=== PATIENT | male | born 1995 | race African-American/Black ===

== ENCOUNTER 2019-03-01 16:58 | Emergency (ER) | payer OTHER ==
[~2019-03-01] VITALS: Ht 167.6 cm; Wt 68.0 kg
[~2019-03-01 16:58] MED LIST: AMOXICILLIN500 MG PO; NORCO 5-325 TA1 EACH PO; PRILOSEC20 MG PO; TRAMADOL HCL50 MG PO
[2019-03-01] MEDS ORDERED: MULTI VITAMIN1 EACH PO (17:13)
[2019-03-01] MEDS ORDERED: INDOMETHACIN50 MG PO (18:42)
--- NOTE | 2019-03-02 07:26 | EKG ---
[facility] [address] [place], [place] [address] Signed Normal sinus rhythm with sinus arrhythmia Normal ECG No previous ECGs available Confirmed by ESHA ROSADO MD ([id number]) on 03/02/2019 7:26:38 AM Electronically Signed By: ESHA ROSADO MD 03/02/19 0726 PATIENT NAME: ANTOINE LEA ARANSAS PASS Electrocardiogram DATE OF : [birth year] PHYSICIAN: ESHA ROSADO MD REPORT #: [id number] REPORT IS CONFIDENTIAL AND NOT TO BE RELEASED WITHOUT AUTHORIZATION
== END 2019-03-01 19:21 | disposition home or self-care (01) ==
LOC: ED 16:58
DX: R07.81 Pleurodynia (principal); R09.1 Pleurisy; Z91.041 Radiographic dye allergy status
CPT/HCPCS: 71046; 80053; 83690; 84484; 85025; 85379; 85651; 86140; 93005; 93010; 99285-25

== ENCOUNTER 2019-11-01 17:46 | Emergency (ER) | payer OTHER ==
[~2019-11-01] VITALS: Ht 167.6 cm; Wt 74.8 kg
[~2019-11-01 17:46] MED LIST changes: +INDOMETHACIN50 MG PO; +MULTI VITAMIN1 EACH PO
[2019-11-01] MEDS ORDERED: NEOMYCIN-POLYMY10 M1 OTIC (19:09)
== END 2019-11-01 19:20 | disposition home or self-care (01) ==
LOC: ED 17:46
DX: H60.92 Unspecified otitis externa, left ear (principal); Z91.02 Food additives allergy status; Z20.828 Contact with and (suspected) exposure to other viral communicable diseases
CPT/HCPCS: 99283; C9803; U0002

== ENCOUNTER 2020-10-23 20:14 | Observation (INO) | payer BC, OTHER ==
[~2020-10-23] VITALS: Ht 167.6 cm; Wt 73.5 kg
[~2020-10-23 20:14] MED LIST changes: +NEOMYCIN-POLYMY10 M1 OTIC
[2020-10-23] MEDS ORDERED: TRAZODONE HCL50 MG PO (20:26)
[2020-10-23] MEDS ORDERED: HYDROCODON-ACE1 EA10 PO (20:26)
[2020-10-23] MEDS ORDERED: OMEPRAZOLE20 MG PO (20:26)
--- NOTE | 2020-10-23 23:58 | NUR ---
ADMIT PT 2315 FOR NEW ONSET A FIB. PT IS ALERT ORIENTED, COOPERATIVE. REMIANS IN AFIB WITH OCC PVCS. PT IS CAN FEEL WHEN HE HAS PVC. 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 EXPLAINED HEART RATE CONTROL IS FIRST PRIOITY. RATE IS 90-110. AMB TO BR WITHOUT PROBLEM TO VOID. C/O BEING HUNGY, GIVEN PUDDING AND CRACKERS WHILE WAITING FOR SANDWICH BOX.
--- NOTE | 2020-10-24 02:24 | NUR ---
HAS BEEN SLEEPING. HR 60'S OCC DIPPING TO 50'S. BP88/62. DR CABEZAS CALLED AND WILL HOLD 0200 SCHEDULED DOSE OF CARDIZEM. PT AWARE.
--- NOTE | 2020-10-24 04:09 | NUR ---
AWAKENS EASILY. BP 91/58, PT STATES BP SYST USUALLY 130'S. REINFORCED CALLING BEFORE GETTING OUT OF BED DUE TO LOWER THAN USUAL BP. PT EXPRESSED UNDERSTANDING. REMAINS IN AFIB.
--- NOTE | 2020-10-24 05:10 | NUR ---
DR CABEZAS CALLED CCU TO CHECK ON PT. UPDATE GIVEN AND ORDER FOR 1L LR OVER 2 HOURS GIVEN. PT REMAINS IN AFIB.
--- NOTE | 2020-10-24 06:47 | NUR ---
CONT TO SLEEP SOUNDLY.
--- NOTE | 2020-10-24 07:35 | NUR ---
REPORT RECEIVED FROM NIGHTSHIFT RN, WILL CONTINUE PLAN OF CARE.
--- NOTE | 2020-10-24 08:14 | NUR ---
THIS RN IN TO ASSESS PT AND ADMINISTER ORDERED MEDICATIONS. PT LAYING IN BED ALERT AND ORIENTED X 3, PARTNER AT BEDSIDE. PT REPORTS NO CHEST PAIN OR LIGHTHEADEDNESS AT THIS TIME BUT DOES REPORT LOWER ABD PAIN. PT STATES IT'S LIKELY HE JUST HAS A FULL BLADDER AND DENIED PRN PAIN MEDICATION WHEN ASKED. PT STATED HE COULD FEEL SOME PALPATIONS AT TIMES. MEDICATION ADMINISTERED AT THIS TIME (SEE MAR). PT THEN UP TO BATHROOM TO VOID. PT REPORTED NO LIGHTHEADEDNESS, CHEST PAIN, OR SOB WHEN WALKING TO AND FROM BATHROOM. PT NOW BACK IN BED, WARM BLANKETS AND WATER PROVIDED. PT REPORTS NO FURTHER NEEDS WHEN ASKED AT THIS TIME, WILL CONTINUE PLAN OF CARE. CALL LIGHT IN REACH, BED IN LOWEST POSITION.
--- NOTE | 2020-10-24 09:31 | NUR ---
MED REC COMPLETE
--- NOTE | 2020-10-24 09:38 | NUR ---
IMAGING IN ROOM AT THIS TIME TO DO SCHEDULED ECHO.
--- NOTE | 2020-10-24 10:35 | NUR ---
THIS RN IN TO ADMINISTER ORDERED MEDICATION. PT LAYING IN BED AWAKE AND ALERT WITH PARTNER AT BEDSIDE. MEDICATION ADMINISTERED (SEE MAR). PT REPORTS NO FURTHER NEEDS WHEN ASKED AT THIS TIME. CALL LIGHT IN REACH, BED IN LOWEST POSITION, WILL CONTINUE PLAN OF CARE.
--- NOTE | 2020-10-24 11:42 | NUR ---
THIS RN IN TO HELP PT UP TO WALK DOWN THE [place]. PT LAYING IN BED AWAKE AND ALERT. PT ABLE TO GET UP WITHOUT ASSISTANCE. PT WALKED TWO LAPS BACK AND FORTH DOWN THE CCU GOOD[place]. PT DENIED SHORTNESS OF BREATH, PALPITATIONS, OR ANY TYPE OF PAIN WHILE WALKING. PT STATED HE FELT SLIGHTLY LIGHTHEADED BUT STATED HE HAS FELT THAT WAY SINCE HIS A-FIB STARTED. PT ABLE TO WALK BACK INTO ROOM AND INTO BATHROOM TO VOID AND THEN GET BACK INTO BED WITHOUT ASSISTANCE. PT NOW LAYING IN BED AT THIS TIME AND REPORTS NO FURTHER NEEDS. PARTNER AT BEDSIDE, CALL LIGHT IN REACH, BED IN LOWEST POSITION, WILL CONTINUE PLAN OF CARE.
--- NOTE | 2020-10-24 11:56 | NUR ---
THIS RN IN TO ASSESS PT. PT LAYING IN BED AWAKE AND ALERT WITH PARTNER AT BEDSIDE. ASSESSMENT COMPLETED AT THIS TIME AND VITALS TAKEN. PT REPORTS NO FURTHER NEEDS WHEN ASKED AT THIS TIME. CALL LIGHT IN REACH, BED IN LOWEST POSITION, WILL CONTINUE PLAN OF CARE.
--- NOTE | 2020-10-24 13:16 | NUR ---
pt has episode of hypotension, BP at 71/44,in room to recheck, second BP is 79/53. Pt states he is feeling nauseated after eating his lunch, requesting emesis bag. Dr. Sumner notified, states pt has prn Zofran ordered. Zofran 4mg IV given, pt states he is feeling better, only complaint was transient nausea, denies chest pain, shortness of breath or any other symptoms. BP 96/54 after Zofran given, pt states nausea has passed at this time. Dr. Sumner also ordered IV fluid bolus if needed, states to hold it as pt's BP improved after nausea passed. Pt is currently resting with at his side, is alert, appropriate and conversant with this RN. Skin is warm and dry. No additional complaints at this time.
--- NOTE | 2020-10-24 14:20 | NUR ---
PT LAYING IN BED RESTING AT THIS TIME. RESPIRATIONS NOTED AND ARE EVEN AND UNLABORED. PT IN NO APPARENT DISTRESS AND WAS LEFT UNDISTURBED. PARTNER IN ROOM WITH PT, WILL CONTINUE PLAN OF CARE.
--- NOTE | 2020-10-24 14:54 | NUR ---
IMAGING IN PT'S ROOM TO DO ANOTHER ECHO AT THIS TIME.
--- NOTE | 2020-10-24 15:26 | NUR ---
THIS RN IN TO CHECK ON PT, PT FINISHED WITH ECHO. PT LAYING IN BED AWAKE AND ALERT WITH PARTNER AT BEDSIDE, DINNER ORDERED FOR PT AT THIS TIME. PT PROVIDED WITH JUICE PER HIS REQUEST. PT REPORTS NO FURTHER NEEDS AT THIS TIME, WILL CONTINUE PLAN OF CARE. CALL LIGHT IN REACH, BED IN LOWEST POSITION.
--- NOTE | 2020-10-24 16:07 | NUR ---
THIS RN IN TO ASSESS PT AND TAKE VITALS. PT LAYING IN BED AWAKE AND ALERT WATCHING TV WITH PARTNER AT BEDSIDE. PT REPORTS NO PAIN OR SHORTNESS OF BREATH AT THIS TIME. PT STATES HES NOT LIGHTHEADED AT THIS TIME BUT FEELS IT WHEN SITTING UP OR LAYING DOWN IN BED. PT STATES HE DOES FEEL A LITTLE "HAZY" WHICH HE HAS FELT SINCE HIS A-FIB STARTED. PT ALSO STATES HE FEELS PALPITATIONS WHEN HE HAS PVC'S. PT ASSESSED AT THIS TIME HEART TONES STILL IRREGULAR IN RYTHM. PT REPORTS NO NEEDS AT THIS TIME WHEN ASKED. CALL LIGHT IN REACH, BED IN LOWEST POSITION, WILL CONTINUE PLAN OF CARE.
--- NOTE | 2020-10-24 17:15 | NUR ---
RESPONDED TO PT'S PRTNER INFORMING ME PT NEEDED TO USE THE BATHROOM. PT PUT ON DETACHED MONITOR AND WAS ABLE TO SIT UP AND WALK TO BATHROOM WITHOUT ASSISTANCE, HR NOTED TO INCREASE FROM THE 90'S TO THE 120-130'S WHILE PT WALKED TO BATHROOM. ONCE PT SAT ON TOILET TO HAVE A BM HR DECREASED BACK TO THE 90'S. HR INCREASED TO 120'S WHEN PT GOT UP AND WALKED BACK TO THE BED AND QUICKLY DECREASED BACK TO A HR IN THE 90'S WHEN PT GOT BACK INTO BED. PT STATED HE FELT PALPITATIONS DURING THIS TIME AND DID FEEL LIGHTHEADED WHEN HE GOT UP TO WALK TO THE BATHROOM. PT NOW LAYING IN BED AWAKE AND ALERT HR IN THE 90'S. PT REPORTS NO FURTHER NEEDS AT THIS TIME, WILL CONTINUE PLAN OF CARE. CALL LIGHT IN REACH, PARTNER IN ROOM AT BEDSIDE, BED IN LOWEST POSITION.
--- NOTE | 2020-10-24 18:07 | EKG ---
[facility] [address] [place] [address] Signed Atrial fibrillation with rapid ventricular response Nonspecific T wave abnormality Abnormal ECG When compared with ECG of 01-MAR-2019 17:11, Atrial fibrillation has replaced Sinus rhythm Confirmed by COLLINS CABEZAS MD ([id number]) on 10/24/2020 6:07:35 PM Electronically Signed By: COLLINS CABEZAS MD 10/24/20 1807 PATIENT NAME: ANTOINE LEA CATINA CRESTLINE Electrocardiogram DATE OF : [birth year] PHYSICIAN: COLLINS CABEZAS MD REPORT #: [id number] REPORT IS CONFIDENTIAL AND NOT TO BE RELEASED WITHOUT AUTHORIZATION
--- NOTE | 2020-10-24 18:45 | NUR ---
THIS RN IN TO CHECK ON PT. PT LAYING DOWN IN BED AT THIS TIME, PARTNER AT BEDSIDE PROVIDIING PT WITH A SIP OF WATER. PT ASKED ON HOW HE HAS BEEN FEELING, PT STATES THAT HE HAD TO LAY DOWN SHORTLY AFTER DINNER WAS BROUGHT DUE TO FEELING PALPITATIONS, WARM, AND LIGHTHEADED AND SLIGHTLY SHORT OF BREATH WHILE SITTING UP. PT STATES HE TRIED TO LAY BACK ON THE BED IN A FOWLERS/SEMI FOWLERS HE WAS ORIGINALLY SITTING STRAIGHT UP WITHOUT SUPPORT ON HIS BACK BUT STILL FELT SIMILAR. PT CURRENTLY LAYING DOWN IN THE BED ON HIS BACK, HR IN THE 90'S AT THIS TIME. PT IS ALERT AND AWAKE, PARTNER STILL AT BEDSIDE, PT PROVIDED WITH SODA PER HIS REQUEST. WILL CONTINUE PLAN OF CARE, CALL LIGHT IN REACH.
--- NOTE | 2020-10-24 19:59 | NUR ---
RESTING IN BED, HR 90'S. WHEN PT SAT UP FOR LUNG AUSCULTATION HR TO 123. EVEN AT REST PT DOES NOT FEEL WELL, FEELS TIRED. CAN ALSO FEEL WHEN HAS PVCS.
--- NOTE | 2020-10-24 20:15 | NUR ---
DR CABEZAS CALLED CCU FOR UPDATE. MANUAL BP 88/48. ORDERS FOR IVF RECIEVED. LR BOLUS OVER 1 HOUR STARTED.
--- NOTE | 2020-10-24 20:35 | NUR ---
PT C/O CHEST DISCOMFOR 09/12, PRESSUR WITH SOME SHARP ELEMEMT. DR CABEZAS CALLED. ORDERS RECIEVED.
--- NOTE | 2020-10-24 21:03 | NUR ---
IN TO GIVE GI COCKTAIL AND PROTONIX, PT TOLERATED WELL. PT UP TO BATHROOM, VOIDED 425 YELLOW URINE AND RETURNED TO BED. PT REPORTS FEELING MILDLY LIGHTHEADED WITH ACTIVITY, BUT STATES IT IS BETTER THAN EARLIER. HR UP TO 122 WITH AMBULATION AND BACK INTO 90'S AT REST. PT DENIES FURTHER REQUESTS, CALL LIGHT AND BELONGINGS WITHIN REACH.
--- NOTE | 2020-10-24 21:24 | NUR ---
RESTING IN BED. BOLUS COMPLETE. BP IMPROVED. CONT CHEST DISCOMFORT UNCHANGED
--- NOTE | 2020-10-24 22:15 | NUR ---
AMB TO BR TO VOID. STATES IS STILL A LITTLE LIGHT HEADED BUT OVERAL BETTER. CHEST DISCOMFORT IS ALSO A LITTLE BETTER. TROPONIN CAME BACK NEG.
--- NOTE | 2020-10-24 23:00 | NUR ---
PT CONT TO HAVE CHEST DISCOMFORT ALTHOUGH A LITTLE BETTER. NOTED ST ELEVATION ON MONITOR IN V LEAD. DR CABEZAS HAD CALLED TO CHECK ON PT AND WAS UPDATED. DR CABEZAS THEN IN DEPT AND EKG REVIEWED.
--- NOTE | 2020-10-24 23:23 | NUR ---
ASSESSMENT DONE. METOPROLOL 12.5MG GIVEN PO. BP 134/70 AFTER THIS L OF LR, PT STATES THIS IS HIS NORMAL.
--- NOTE | 2020-10-25 00:30 | NUR ---
AWAKENED PT TO DRAW LAB. NO C/O.
--- NOTE | 2020-10-25 02:00 | NUR ---
SLEEPING. LAYING ON L SIDE WITH R ARM UP,WHICH HAS BP CUFF IN PLACE. HR 70-80, REMAINS AFIB.
--- NOTE | 2020-10-25 04:16 | NUR ---
AWAKENED FOR VS AND ASSESSMENT. STATES HAS BEEN SLEEPING. AMB TO BATHROOM, HR TO 109. STATES DOESNT FEEL QUITE BAD WHEN UP BEFORE.
--- NOTE | 2020-10-25 06:55 | NUR ---
SLEEPING, NO OTHER CHANGES.
--- NOTE | 2020-10-25 08:14 | NUR ---
IN PATIENT'S ROOM FOR ASSESSMENT AND VITALS. PT EAGER TO HAVE SOME PROGRESS IN SOMEWAY TODAY. PATIENT UP TO BATHROOM TO VOID. PT STILL ENDORSES SOME DIZZYNESS WHEN AMBULATING, WHICH IS ABOUT THE SAME BEFORE. PATIENT REMAINS IN AFIB, 80-90s. LUNG SOUNDS ARE CLEAR. PT STATES HE IS HAVING LOWER ABDOMINAL PAIN THIS MORNING, COMPARED TO UPPER QUAD ABD PAIN YESTERDAY. PAIN DID NOT IMPROVE AFTER VOIDING. DISCUSSED PLAN OF CARE WIHT PATIENT. CONTINUE TO MONITOR.
--- NOTE | 2020-10-25 09:58 | NUR ---
PATIENT'S IN ROOM WITH PATIENT. PATIENT GIVEN AM MEDS AND TOLERATED WELL. PT ABLE TO TAKE THE LOPRESSOR THIS AM WITH A BP OF 116/72. IVF CONTINUE AT 75 ML/HR. PT NOT VERY HUNGRY THIS AM AND HASN'T EATEN ANY OF HIS FRUIT YET. PT DENIES FURTHER NEEDS.
--- NOTE | 2020-10-25 10:15 | NUR ---
CASE MANAGEMENT ASSESSMENT COMPLETE. PER PRIMARY RN PAO PATIENT SHE DOES NOT FEEL THAT PATIENT REQUIRES ANY DISCHARGE PLANNING OR ASSISTANCE AT THIS TIME. ADVISED PAO RN TO CONTACT CASE MANAGEMENT IF NEEDED.
--- NOTE | 2020-10-25 10:50 | NUR ---
PATIENT AMBULATED IN THE [place] PER REQUEST OF DR. CABEZAS. PATIENT'S HR UP TO 110-121 AT THIS HIGHEST DURING AMBULATION. PATIENT REPORTS THAT HE STILL FEELS DIZZY, WITH HIS HEAD FEELING LIKE, "MY HEAD IS STUCK IN A CLOUD." PATIENT ABLE TO DO TWO FULL LAPS IN CCU HALLWAY. PATIENT ALSO VOIDS INTO URINAL X2 FOR 400 ML EACH TIME AND URINE SEEMS TO BE CLEARING AND BECOMING MORE AND MORE DILUTE. PT'S REMAINS IN ROOM.
--- NOTE | 2020-10-25 11:21 | NUR ---
DR. CABEZAS IN TO SEE PATIENT AT THIS TIME. PLAN OF CARE AND POTENTIAL TRANSFER BEING DISCUSSED. DR. CABEZAS CONSULTING WITH CARDIOLOGY TO SEE WHAT IS RECOMMENDED FOR THIS PATIENT'S CONDITION AND PLAN MOVING FORWARD. PT REMAINS IN AFIB.
--- NOTE | 2020-10-25 11:26 | EKG ---
[facility] [address] [place] [address] Signed Atrial fibrillation Nonspecific ST and T wave abnormality Abnormal ECG When compared with ECG of 23-OCT-2020 20:16, Non-specific change in ST segment in Inferior leads Reconfirmed by COLLINS CABEZAS MD ([id number]) on 10/25/2020 11:26:10 AM Electronically Signed By: COLLINS CABEZAS MD 10/25/20 1125 Electronically Signed By: COLLINS CABEZAS MD 10/25/20 1126 PATIENT NAME: ANTOINE LEA CASHIERS Electrocardiogram DATE OF : [birth year] PHYSICIAN: COLLINS CABEZAS MD REPORT #: [id number] REPORT IS CONFIDENTIAL AND NOT TO BE RELEASED WITHOUT AUTHORIZATION
--- NOTE | 2020-10-25 13:58 | NUR ---
PATIENT'S LEAVES AT THIS TIME FOR PATIENT TO HAVE OTHER VISITORS TO COME AND VISIT. PT NOW SITTING UP EATING HIS LUNCH. PT HAS BEEN ONLY EATING MINIMALLY. IVF TO CONTINUE AT 75 ML/HR DUE TO PATIENT NOT TAKING A LOT ORALLY YET.
--- NOTE | 2020-10-25 14:37 | NUR ---
PATIENT'S HR HAS BEEN SLIGHTLY TRENDING UP. DR. CABEZAS AWARE. PT'S VISITORS HAVE LEFT AND PT'S NOW IN ROOM. WAITING ON [facility] TRANSFER CENTER TO ACCEPT PATIENT.
--- NOTE | 2020-10-25 15:07 | NUR ---
PATIENT PROVIDED WITH WARM BATH WIPES, CLEAN GOWN, AND A RAZOR. PT'S IS HELPING PATIENT GET CLEANED UP AT THIS TIME AND DENIES WANTING THIS RN TO HELP. PATIENT'S HR REMAINS 100-110s. PT STATES OVERALL HE FEELS ABOUT THE SAME, AND GETS EASILY FATIGUED WITH REALLY ANY ACTIVITY.
--- NOTE | 2020-10-25 16:30 | NUR ---
AMBULATED TO BR, HR INCREASED TO 140 BPM WITH EXERTION. C/O FEELING LIGHT HEADED/DIZZY. BACK TO BED W/O INCIDENT.
--- NOTE | 2020-10-25 17:22 | NUR ---
PATIENT REPORTS THAT HE IS FEELING MORE AND MORE DIZZY AND "HEAD IN THE CLOUDS LIKE." DR. CABEZAS CALLED AND UPDATED. PT'S HR HAS BEEN MORE CONSISTENTLY STAYING IN THE 110-130s, AND EVEN REACHED 140 WITH AMBULATION TO BATHROOM TO HAVE A BM. ORDER TO BE REC'D FOR MORE MEDICATION FOR HR CONTROL. PT UPDATED ON PLAN. PENDING CALL BACK FROM [facility].
--- NOTE | 2020-10-25 19:35 | NUR ---
RESTING IN BED, IN ROOM. PT IS ALERT AND LOOKING FORWARD TO CARDIOVERSION.
--- NOTE | 2020-10-25 20:10 | NUR ---
PT PREPARED FOR CARDIOVERSION 1949, ASA SCORE PER DR GAMEZ OF 1. TIME OUT DONE AT 1952. DR GAMEZ AND DR CABEZAS AT BEDSIDE. AT 1956 AFTER TOTAL OF 120MG PROPOFOL THAT WAS GIVEN IN 40MG INCREMENTS PT SEDATED AND WAS CARDIOVERTED WITH 200 JOULES, CONVERTED TO NSR RATE OF 90, BP 95/60. PT HAS [address] RT AT BEDSIDE SUPPORTING AIRWAY. PT STARTING TO AROUSE 2004 AND TALKING AT 2009.
--- NOTE | 2020-10-25 21:00 | NUR ---
PT FEELING MUCH BETTER STATES HAS AN APPETITE NOW. AMB TO BR AND DAVID WELL.
--- NOTE | 2020-10-25 23:00 | NUR ---
SLEEPING. CONT IN SR.
--- NOTE | 2020-10-26 00:35 | NUR ---
AWAKENS EASILY. ASSESSMENT DONE. NO C/O.
--- NOTE | 2020-10-26 02:20 | NUR ---
CONT TO SLEEP. REMAINS NSR.
--- NOTE | 2020-10-26 04:00 | NUR ---
CONT TO SLEEP. REMAINS SR. WILL HOLD ASSESSMENT FOR NOW.
--- NOTE | 2020-10-26 05:30 | NUR ---
AWADEVAUGHN EASILY, NO C/O. REMAINS IN SR. DECLINES NEED TO VIDD.
--- NOTE | 2020-10-26 07:45 | NUR ---
PATIENT SLEEPING AT THIS TIME AND WILL BE ALLOWED TO CONTINUE RESTING FOR A WHIILE LONGER. HR IN THE 60s, SINUS. PT'S IN ROOM NEXT TO HIM ASLEEP. RR EVEN AND UNLABORED. PATIENT WAS CARDIOVERTED LAST EVENING TO SINUS RHYTHM SUCCESSFULLY AFTER ONE ATTEMPT.
--- NOTE | 2020-10-26 08:57 | NUR ---
DR. CABEZAS IN TO SEE PATIENT. PLAN IS FOR PATIENT TO GO HOME AND FOLLOW UP WITH PCP, AND ALSO OBTAIN A CARDIOLOGY CONSULTATION FROM PCP. PATIENT SITTING UP IN BED EATING, AND STATES THAT ALL OF HIS SYMPTOMS HAVE RESOLVED SINCE THE CARDIOVERSION LAST EVENING. PT WILL BE DISCHARGED ON AN ANTICOAGULANT.
[2020-10-26] MEDS ORDERED: XARELTO10 MG PO (09:06)
[2020-10-26] MEDS ORDERED: XARELTO20 MG PO (09:08)
--- NOTE | 2020-10-27 18:31 | EKG ---
[facility] [address] [place], [place] [address] Signed Normal sinus rhythm Nonspecific ST and T wave abnormality Abnormal ECG When compared with ECG of 24-OCT-2020 22:53, Sinus rhythm has replaced Atrial fibrillation Confirmed by COLLINS CABEZAS MD ([id number]) on 10/27/2020 6:30:59 PM Electronically Signed By: COLLINS CABEZAS MD 10/27/201830 PATIENT NAME: ANTOINE LEA CATINA VILLANOVA Electrocardiogram DATE OF : [birth year] PHYSICIAN: COLLINS CABEZAS MD REPORT #: [id number] REPORT IS CONFIDENTIAL AND NOT TO BE RELEASED WITHOUT AUTHORIZATION
== END 2020-10-26 09:45 | disposition home or self-care (01) ==
LOC: ED 20:14 → CCU 20:15
PROVIDERS: ADMIT Internal Medicine; ATTEND Internal Medicine
DX: I48.0 Paroxysmal atrial fibrillation (principal); Q24.5 Malformation of coronary vessels; Z91.041 Radiographic dye allergy status; Z79.899 Other long term (current) drug therapy; Z20.822 Contact with and (suspected) exposure to COVID-19
CPT/HCPCS: 80053; 83735; 84443; 84484; 85025; 93005; 93010; 93306; 96372; 96375; 96376; 99285-25; C9113; C9803; G0378; J1650; J2405; J7121; U0003

== ENCOUNTER 2021-01-29 11:57 | Inpatient (IN) | payer BC, OTHER ==
[~2021-01-29] VITALS: Ht 167.6 cm; Wt 74.2 kg
[~2021-01-29 11:57] MED LIST changes: +HYDROCODON-ACE1 EA10 PO; -MULTI VITAMIN1 EACH PO; +TRAZODONE HCL50 MG PO; +XARELTO10 MG PO; +XARELTO20 MG PO
--- NOTE | 2021-01-29 18:30 | NUR ---
PT ALERT AND ORIENTED SITTING IN BED, REPORTS PAIN 7-8/10, 0.5MG DILAUDID IV PRN. IV FLUIDS STARTED, ABX STARTED. PT ON CELL PHONE NOW. ADMISSION COMPLETE EXCEPT FOR ASSESSMENT
--- NOTE | 2021-01-29 20:30 | NUR ---
PT CALLED, REQUESTED BATHROOM. ONCE BACK TO BED, IV FLUSHED, AND MAINTANCE FLUIDS. PT THOUGHT HE COULD HAVE A BM, HOWEVER, HE WAS UNABLE. DID VOID SMALL AMOUNT HE SAID.
--- NOTE | 2021-01-29 21:20 | NUR ---
PT ASSESSMENT COMPLETE. PT RATES PAIN 8/10 AFTER ATTEMPTING TO USE THE BATHROOM. PT DESCRIBES CRAMPING ABD PAIN THAT RADIATES TO BACK. PRN ADMINISTERED, SEE EMAR. PT DENIES NAUSEA. DECLINES SOB. BT'S ACTIVE. PT REPORTS FLATUS, UNABLE TO HAVE BM. ABD TENDER TO PALPATION. MILD DISTENSION NOTED. IV FLUSHED. PT REQUESTS NEW IV SITE DUE TO SORENESS IN AC, AND CONVIENENCE. NEW IV PLACED BY THIS TRANSFER PUMPER. PT TOELRATED WELL. GOOD BLOOD RETURN NOTED. ICE WATER REFILLED. PT DENIES FURTHER NEEDS AT THIS TIME. CALL LIGHT IN REACH.
--- NOTE | 2021-01-30 00:05 | NUR ---
c/o abd pain, medicated with dilaudid 1.5mg iv. turns and repositions self in bed
--- NOTE | 2021-01-30 00:05 | NUR ---
REGISTERED NURSE PRACTITIONER TO ROOM TO CHECK ON PT. PT RESTING IN BED AWAKE. STATES HE HAS NOT BEEN ABLE TO FALL ASLEEP YET. DENIES NEED FOR PRN AT THIS TIME. STATES "LOULOU AROUND 2". DENIES NEEDS AT THIS TIME. CALL LIGHT IN REACH.
--- NOTE | 2021-01-30 00:15 | NUR ---
PT RESTING IN BED AWAKE. PT REQUESTS IV SITE BE TAPED ADDITIONALLY, STATES IT CAUGHT ON BLANKET. PT DENIES FURTHER NEEDS AT THIS TIME. CALL LIGHT IN REACH.
--- NOTE | 2021-01-30 02:28 | NUR ---
PT ASSESSMENT COMPLETE. PT REPORTS PAIN 7/10 TO ABD, CONTINUES TO DESCRIBE CRAMPING. PRN DILUADID ADMINISTERED. PT DENIES SOB OR NAUSEA. BT'S ACTIVE, ABD TENDER TO PALPATION, MILD DISTENSION CONTINUES. PT UP TO BATHROOM AND BACK TO BED WITH SBA. PT REPORTS INCREASED PAIN WITH MOVEMENT AND ATTEMPT TO HAVE BM. ICE WATER REFILLED, WARM COMPRESS, PRN SLEEP AID ADMINISTERED PER PT REQUEST. STATES THAT HE HAS BEEN UNABLE TO SLEEP WELL TONIGHT. PT DENIES FURTHER NEEDS AT THIS TIME. PT VERY THANKFUL FOR ALL CARES. CALL LIGHT IN REACH.
--- NOTE | 2021-01-30 05:00 | NUR ---
ENVIRONMENTAL DEPARTMENT MANAGER TO ROOM FOR IV PUMP ALARM. PT WAKES BRIEFLY, FALLS BACK TO SLEEP QUICKLY WHILE ENVIRONMENTAL DEPARTMENT MANAGER AT BEDSIDE. SNORING AUDIBLY. CALL LIGHT IN REACH.
--- NOTE | 2021-01-30 06:43 | NUR ---
PT UP TO BATHROOM AND BACK TO BED. REPORTS INCREASED PAIN, 12/13. PRN ADMINISTERED, SEE EMAR. WARM COMPRESS PROVIDED PER PT REQUEST. ICE WATER REFILLED. PT DENIES FURTHER NEEDS. CALL LIGHTIN REACH. PT THANKFUL FOR CARES.
--- NOTE | 2021-01-30 07:31 | NUR ---
PT SLEEPING SOUNDLY AT TIME OF SHIFT EXCHANGE, LEFT UNDISTURBED. CALL LIGHT AND NEEDED ITEMS AT BEDSIDE.
--- NOTE | 2021-01-30 09:20 | NUR ---
PATIENT IN BED RESTING AT THIS TIME. BREAKFAST AT BEDSIDE. VITALS AND I&O'S CHARTED. PATIENT SAID SHOWER MAYBE LATER, WILL LET ME KNOW. CALL LIGHT IN REACH. NO FURTHER NEEDS AT THIST RISSA.
--- NOTE | 2021-01-30 10:26 | NUR ---
PT ALERT AND INTERACTIVE DENIES DISCOMFORTS OR NEEDS. TOLERATES CLEAR LIQUIDS FOR MORNING MEAL, REMAINS RESTING IN BED. HAS ITEMS FOR SELF ENTERTAINMENT AT BEDSIDE DENIES NEEDS FROM THIS LENS COATING TECHNICIAN. DR MONTELONGO AGREES PULSE OX CAN BE DC'D. DISCUSSED CURRENT ILLNESS WITH PT AND ONGOING TREATMENT. HE STATES HE THINKS HE WILL BE HERE A COUPLE MORE DAYS, AND THAT HE IS IMPROVED SINCE ADMISSION
--- NOTE | 2021-01-30 12:16 | NUR ---
PATIENT WAS TALKING ON CELL PHONE. QUICKLY STATES HE DOESN'T THINK HE HAS ANY NEEDS TO GO HOME. ASKED IF I CAN COME BACK ANOTHER TIME, STATES "IF YOU NEED TO".
--- NOTE | 2021-01-30 12:55 | NUR ---
PT HAS RESTED IN BED THIS SHIFT DOZING OFF AND ON. C/O ABDOMINAL PAIN NOW AND FEELING LIKE HE NEEDS TO EVACUATE HIS BOWEL. WARM PACK PROVIDED AND 0.5 MG OF DILAUDID. PT RESTING COMFORTABLY NOW SIPPING ON CHICKEN BROTH.
--- NOTE | 2021-01-30 13:59 | NUR ---
PT C/O NAUSEA AND A HEADACHE. TYLENOL PROVIDED WELL ZOFRAN. IS PRESENT AT BEDSIDE. PT HAD SIPS OF CLEARS EALIER ONLY.
--- NOTE | 2021-01-30 14:08 | NUR ---
PATIENT IN BED TALKING WITH VISITOR WHO IS IN ROOM. VITALS AND I&O'S CHARTED. CALL LIGHT IN REACH. NO FURTHER NEEDS AT THIS TIME.
--- NOTE | 2021-01-30 15:14 | NUR ---
PT AGREES ZOFRAN AND TYLENOL WERE EFFECTIVE, STATES HE FEELS MUCH BETTER. CONTINUES AT BEDSIDE.
--- NOTE | 2021-01-30 15:52 | NUR ---
SPOKE WITH PATIENT IN ROOM. PATIENT LIVES WITH AND KIDS. IS EMPLOYED. DRIVES. USES NO DME. HAS NO ISSUES WITH AMBULATION OR STAIRS. HAS PCP. PT PLANS TO DC HOME WITH FAMILY. DENIES WORRIES OF AFFORDING MEDS/FOOD/UTILITIES. FEELS SAFE TO DISCHARGE TO HOME SITUATION. WILL LET STAFF KNOW IF HE HAS ANY QUESTIONS OR CONCERNS.
--- NOTE | 2021-01-30 18:19 | NUR ---
PT PASSED A DROP OF STOOL, NO VISIBLE BLOOD. C/O ABDOMINAL PAIN, MEDICATED WITH DILAUDID. FRESH HOT PACK APPLIED TO ABDOMEN PER REQUEST. RESTING IN BED NOW, HAS DRANK HOT TEA AND APPLE JUICE WITH MIRALAX. NO EMESIS OR FURTHER C/O NAUSEA.
--- NOTE | 2021-01-30 19:00 | NUR ---
BEDSIDE REPORT RECEIVED FROM OFFGOING RNMARLO. PT IN BATHROOM. DENIES NEEDS AT THIS TIME. CALL LIGHT IN REACH.
--- NOTE | 2021-01-30 21:30 | NUR ---
PT COMING OUT OF BATHROOM, DOUBLED OVER HOLDING ABDOMEN. PT REPORTS MARKED INCREASE IN ABDOMINAL CRAMPING AFTER USING THE BATHROOM. PT ATTRIBUTES THIS TO MIRALAX DOSAGE EARLIER. PRNS ADMINISTERED. PT ALSO REPORTS NAUSEA. PRN ANTIEMETIC ADMINISTERED. WARM COMPRESS PROVIDED PER PT REQUEST. PT FACETIMING WITH HIS SIGNIFICANT OTHER. THANKFUL FOR ALL CARES. DENIES FURTHER NEEDS AT THIS TIME. CALL LIGHT IN REACH.
--- NOTE | 2021-01-30 23:10 | NUR ---
FEED ADVISER TO ROOM TO CHECK ON PT. PT SITTING UP IN BED. STATES THAT PAIN IS IMPROVED. RATES 4/10 TO ABD. STATES THAT HE "JUST CANNOT GET TO SLEEP". PT REQUESTS PRN SLEEP AID, ADMINISTERED. PT DENIES FURTHER NEEDS AT THIS TIME. CALL DALILA ECHOLS.
--- NOTE | 2021-01-30 23:50 | NUR ---
IV PUMP ALARMING, NEW BAG OF FLUIDS PROVIDED. NO OTHER NEEDS. CALL LIGHT IN REACH.
--- NOTE | 2021-01-31 01:40 | NUR ---
PT RESTING IN BED, WAKES EASILY WHEN MOHS SURGEON OPENS THE DOOR. STATES PAIN IS WELL CONTROLLED. DENIES NEEDS. CALL LIGHTIN REACH.
--- NOTE | 2021-01-31 04:17 | NUR ---
OVERHAULER TO ROOM FOR IV PUMP ALARMING. PT ASSESSMENT COMPLETE. PT STATES THAT PAIN IS WELL CONTROLLED, DENIES NEED FOR PRN AT THIS TIME. DENIES NAUSEA OR SOB. PT DENIES FURTHER BM SINCE LAST EVENING. BTS ACTIVE. ABD TENDER TO PALPATION. IV SITE FLUSHED. WNL. IFV RUNNING ORDERED. WARM COMPRESS AND 7UP PROVIDED. PT DENIES FURTHER NEEDS. CALL LIGHT IN REACH.
--- NOTE | 2021-01-31 07:27 | NUR ---
PT RESTING EYES CLOSED AT TIME OF SHIFT EXCHANGE. LEFT UNDISTURBED. CALL LIGHT AND NEEDED ITEMS AT BEDSIDE
--- NOTE | 2021-01-31 08:53 | NUR ---
DR MONTELONGO IN TO SEE PT, POC DISCUSSED. F/U WITH PT HE DENIES ANY QUESTIONS. EDUCATED PT R/T UPCOMING SCOPE HE VERBALIZES UNDERSTANDING DENIES CONCERNS. C/O ABDOMINAL PAIN BENTYL ADMISTERED DISCUSSED PAIN MANAGEMENT STRATEGY PT AGREES TO NOTIFY EARLY CHILDHOOD EDUCATOR AIDE OF ANY INCREASED DISCOMFORT. WARM PACK AND FRESH H20 PROVIDED.
[2021-01-31] MEDS ORDERED: MULTI VITAMIN1 EACH PO (10:23)
[2021-01-31] MEDS ORDERED: OMEPRAZOLE20 MG PO (10:23)
[2021-01-31] MEDS ORDERED: TUMS200 MG PO (10:24)
--- NOTE | 2021-01-31 10:24 | NUR ---
MED REC COMPLETE
--- NOTE | 2021-01-31 10:25 | NUR ---
PT HAS REFUSED ANY PO INTAKE THIS SHIFT EXCEPT H20. ABDOMEN CONTINUES TO CRAMP AND BE UNCOMFORTABLE, BREAKTHROUGH MED ADMINISTERED. IS AT BEDSIDE ALL QUESTIONS ANSWERED. WARM PACK TO ABDOMEN PT RESTING EYES CLOSED
--- NOTE | 2021-01-31 12:17 | NUR ---
PT ALERT, ORIENTED AND VISITING WITH . PT IS FRUSTRATED WITH HIS HEALTH, DESIRES TO BE BACK OUT LIVING AND WORKING. PT BEING PREPPED FOR POSSIBLE SCOPE TODAY WITH DR BRICE. PT DOES HAVE GOOD ATTITUDE, GAVE ENCOURAGEMENT AND BLESSING. WILL CONTINUE TO FOLLOW
--- NOTE | 2021-01-31 12:34 | NUR ---
PT FEELS SOMEWHAT BETTER TOLERATES CLEAR ENSURE. IS PRESENT IN THE ROOM PROVIDING COMFORT TO PT. WAITING CONSULT WITH DR BRICE. WARM PACK TO ABDOMEN. PT PASSESS APPROX 15 MLS OF LIQUID STOOL NO BLOOD VISIBLE.
--- NOTE | 2021-01-31 14:20 | NUR ---
pt continues to have abdominal pain. medicated x2 warm pack provided. remains at bedside. pt resting eyes closed
--- NOTE | 2021-01-31 18:21 | NUR ---
DR BRICE IN TO SEE THIS PT, IS PRESENT. DISCUSSED PLANS FOR SCOPE TOMORROW AND POSSIBLE DX ALL QUESTIONS ANSWERED
--- NOTE | 2021-01-31 19:25 | NUR ---
REPORT RECEIVED FROM DAY SHIFT RN. PT LYING IN BED ALERT AND ORIENTED. DENIES NEEDS AT THIS TIME. WHITE BOARD UPDATED. CALL LIGHT IN REACH.
--- NOTE | 2021-01-31 20:15 | NUR ---
PT REPORTS NAUSEA. TOO SOON FOR PRN. DR. ROSADO NOTIFIED. NEW TELEPHONE ORDERS RECEIVED VERIFIED WITH READ BACK METHOD. ADMINISTERED PER ORDER. PT REPORTS ABD CRAMPING, DOES NOT WANT PRN FOR PAIN AT THIS TIME. KPAD PROVIDED FOR COMFORT. IV ABX INFUSING WNL. SPOUSE IN ROOM. NO FURTHER NEEDS AT THIS TIME. CALL LIGHT IN REACH.
--- NOTE | 2021-01-31 20:29 | NUR ---
Patient visitor is in room and patient is drinking liquids slowly. Call lght is in reach.
--- NOTE | 2021-01-31 21:45 | NUR ---
PT WITH CONTINUED NAUSEA AND VOMITING. UNABLE TO TOLERATE BOWEL PREP. DR. ROSADO ON FLOOR AND AWARE. NEW ORDERS RECEIVED.
--- NOTE | 2021-01-31 22:00 | NUR ---
PT WITH APPROXIMATELY 300 ML EMESIS. PRN FOR N/V ADMINISTERED. SCHEDULED MEDS ADMINISTERED PER EMAR. EVENING ASSESSMENT COMPLETE. PT REPORTS LOWER ABD PAIN/CRAMPING. DENIES PRN FOR PAIN AT THIS TIME. PT HAVING LIQUID STOOL USING BSC INDEPENDENTLY. BOWEL PREP MIXED WITH APPLE JUICE PER PT REQUEST. PT DENIES QUESTIONS OR CONCERNS. CALL LIGHT IN REACH.
--- NOTE | 2021-01-31 23:50 | NUR ---
PT RESTING IN BED. PT WAS ABLE TO FINISH BOWEL PREP. DENIES NAUSEA. REPORTS PAIN IS TOLERABLE AT THIS TIME. NO FURTHER NEEDS.
--- NOTE | 2021-02-01 01:15 | NUR ---
IV PUMP ALARMING. NEW BAG IVF HUNG. PT HAS HAD MULTIPLE LIQUID BM. PRN FOR PAIN AND ABD CRAMPING ADMINISTERED PER EMAR. PT DENIES NAUSEA. PT NPO. DENIES FURTHER NEEDS. CALL LIGHT IN REACH.
--- NOTE | 2021-02-01 04:39 | NUR ---
IV ABX INFUSING WNL. PT REPORTS ABD PAIN 11/12. PRN FOR PAIN ADMINISTERED PER EMAR.
--- NOTE | 2021-02-01 06:29 | NUR ---
SCHEDULED MEDS ADMINISTERED. VS AND I&O COMPLETE. COMMODE EMPTIED OF LIQUID STOOL. PT REPORTS ABD PAIN TOLERABLE AT THIS TIME. ALSO SOME NAUSEA WHEN UP TO BSC BUT HAS SINCE PASSED SINCE RETURNING TO BED. PT REMAINS NPO. IVF INFUSING. DENIES FURTHER NEEDS. CALL LIGHT IN REACH.
--- NOTE | 2021-02-01 07:00 | NUR ---
Report received from Sanjana MILLER. Pt awake resting in bed, states no needs at this time, IVF infusing WNL. NPO. Will continue plan of care.
--- NOTE | 2021-02-01 07:30 | NUR ---
PT WAS IN BED. THIS WORM RAISER GAVE PT A WARM WASHCLOTH FOR THEIR FACE. WHITEBOARD WAS UPDATED. CALL LIGHT IS WITHIN REACH. NO FURTHER NEEDS AT THIS TIME.
--- NOTE | 2021-02-01 10:48 | CONS ---
[facility] [address], [place] [address] Signed DATE OF CONSULTATION: 01/31/2021 REQUESTING PHYSICIANS: Dr. Irvin Munguia and Dr. Esha Crow. PROBLEM: Lower abdominal pain, thickening of sigmoid on CT scan and initial rectal bleeding (persisting and worsening). 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 He is and accompanied by his currently, and they have four children together. He is originally from [place], [place]. The patient presented to the emergency room on January 29 at approximately 1:15 p.m. complaining of severe abdominal cramping pain that began earlier in that day. The entire abdomen had pain related to the cramping. He had four bowel movements, two with formed stool and the last two with blood. He had no associated nausea or vomiting. The patient has never had a similar problem in the past. He is known to have had appendectomy in 2008. 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 He is no longer taking anticoagulant Xarelto as he had at that time. His cardioversion has been durable. Since his hospitalization, he has been given intravenous antibiotics, IV fluids, and yet his pain in the lower abdomen persist. He has had no nausea or vomiting and no further rectal bleeding. LAB STUDIES: Noted elevated white count of 12.2 at admission, today only 5.8. His hematocrit was 44, now 36. Platelets are stable 231,000 currently. His Chem profile was normal, creatinine of 1.11, previously 0.98. Liver enzymes are normal. Lipase normal at 8. His COVID test at admission was negative. He did suffer COVID infection in December. At present, he has lower abdominal pelvic pain. No blood per rectum. No hematemesis. No nausea or vomiting. He has tolerated clear liquids overall. He has had no further rectal bleeding. REVIEW OF SYSTEMS: He denies any shortness of breath or chest pain. He has had no headaches or other similar problems. No fever or chills. Electronically Signed By: SHAE BRICE MD 02/01/21 1048 PATIENT NAME: ANTOINE LEA CONSULTATION DATE OF : [birth year] REPORT #: [id number] PHYSICIAN: SHAE BRICE MD PCP: CONSTANCE ESTEBAN PA-C REPORT IS CONFIDENTIAL AND NOT TO BE RELEASED WITHOUT AUTHORIZATION [facility] [address], [place] [address] Signed Vital signs have been normal since admission essentially. In particular, his temperature has been normal 98.3 on admission, 98.8 currently. SOCIAL HISTORY: As noted above. FAMILY HISTORY: Negative for inflammatory bowel disease or colon cancer that he is aware of. PHYSICAL EXAMINATION: GENERAL: A pleasant black man who is sitting upright in his bed. He does not look systemically toxic at this time. VITAL SIGNS: Temperature is 98.8, pulse is 59, blood pressure is 108/46, O2 saturations 98% on room air. NECK: Trachea is midline. CHEST: Shows normal respiratory excursion. HEART: Regular. ABDOMEN: Muscular and soft. He does have mild tenderness in lower abdomen, both right and left sides, but mostly on the left and without associated ascites or other abnormality noted. EXTREMITIES: Show no clubbing, cyanosis, or edema. MEDICATIONS: His medication list is reviewed, confirming he has been given dicyclomine (Bentyl) q.i.d., Dilaudid q.3 hours as needed for pain, Flagyl 500 mg IV q.8 hours, Tylenol 650 p.o. q.6 hours p.r.n. pain, pantoprazole 40 mg IV b.i.d., trazodone as well as ceftriaxone 2 g IV daily. I have reviewed his imaging studies in detail. Due to his low fat content, evaluation of intra-abdominal contents is somewhat obscured in certain tissue planes, but the rectum itself appears normal. Sigmoid colon shows no sign of diverticulosis or peridiverticular abscess. Sigmoid and left colon do have significant thickening. Thickened colon was traced back to the splenic flexure. Notably, the right colon and transverse colon have thin colonic whitlock. ASSESSMENT: Given his age and so forth, the most likely diagnosis is inflammatory bowel disease though other sorts of inflammatory change of the colon could be ongoing. He has had broad-spectrum intensive antibiotic therapy thus far, but the mainstay of treatment for inflammatory bowel disease of course would be intravenous steroid administration. He clearly needs colonoscopy to better characterize the problem and specifically to assess for inflammatory bowel disease or other inflammatory processes to tailor his therapy. Electronically Signed By: SHAE BRICE MD 02/01/21 1048 PATIENT NAME: ANTOINE LEA CONSULTATION DATE OF : [birth year] REPORT #: [id number] PHYSICIAN: SHAE BRICE MD PCP: CONSTANCE ESTEBAN PA-C REPORT IS CONFIDENTIAL AND NOT TO BE RELEASED WITHOUT AUTHORIZATION [address] [address] Signed The patient has been on clear liquids for at least two days. A bowel prep would be beneficial for good detail in the examination. We will initiate a MiraLAX prep tonight as tolerated and maintain clear liquids and plan for colonoscopy tomorrow with IV sedation. The risk of bleeding, infection, perforation, and so forth were reviewed in detail with the patient and his . They understand and wished to proceed. If this does represent inflammatory bowel disease, steroid administration and concurrent mesalamine administration would be beneficial and rather promptly so. We will empirically give hydrocortisone 100 mg IV q.8 hours on the basis of this "best fit" diagnosis mindful that it may be an error. If this does not represent inflammatory bowel disease, then the steroid can be promptly discontinued, hazard of limited dosing of the short-term is quite limited. MD ANGELINE Anderson/MODL /[id number] cc: MD Irvin Bermeo MD Copies: ESHA CROW MD, BRIAN DO ~ Electronically Signed By: SHAE BRICE MD 02/01/21 1048 PATIENT NAME: ANTOINE LEA TIPTON CONSULTATION DATE OF : [birth year] REPORT #: [id number] PHYSICIAN: SHAE BRICE MD PCP: CONSTANCE ESTEBAN PA-C REPORT IS CONFIDENTIAL AND NOT TO BE RELEASED WITHOUT AUTHORIZATION
--- NOTE | 2021-02-01 11:26 | NUR ---
02/01/21 1126 Sheets,Ashley 1120 PT ARRIVED TO PACU ON 2L VIA MASK, PT WAKES AND DENIES PAIN AND NAUSEA. VSS. PT ENCOURAGED TO PASS GAS/AIR.
--- NOTE | 2021-02-01 12:18 | NUR ---
Pt returns from procedure drowsy but oriented. IVF infusing WNL. PO medications administered. VSS. Plan of care reviewed and patient is agreeable. Call light in reach, at bedside.
--- NOTE | 2021-02-01 12:19 | NUR ---
PT ALERT, ORIENTED AND VISITING WITH SPOUSE. PT MENTIONED HE WAS UP MOST OF THE NIGHT DUE TO PREP FOR SCOPE THIS AFTERNOON. TRYING HARD TO STAY POSITIVE, HAD PRAYER WITH BOTH, GAVE ENCOURAGEMENT.
--- NOTE | 2021-02-01 14:15 | NUR ---
Pt c/o abdominal cramping, PRN medications administered and pt states has no other needs at this time. Discussed plan of care and pt and is agreeable as well. Call light in reach.
--- NOTE | 2021-02-01 15:30 | NUR ---
Pt c/o nausea, PRN IV zofran administered, no other needs at this time
--- NOTE | 2021-02-01 16:30 | NUR ---
Scheduled meds administered, pt handout and education provided re: mesalamine. Questions answered and pt has no needs, states pain and nausea tolerable at this time. Ambulates to BR with assisting, IVF infusing WNL, low fiber dinner ordered.
--- NOTE | 2021-02-01 19:00 | NUR ---
SHIFT REPORT RECEIVED FROM IRVIN MILLER. PT RESTING IN BED. NO NEEDS AT THIS TIME. CALL LIGHT IN REACH.
--- NOTE | 2021-02-01 22:30 | NUR ---
PT REPORTS 7/10 ABD PAIN, PRN PAIN MED AND PRN INSOMNIA MED PROVIDED FOR SLEEPLESSNESS. NO OTHER NEEDS. CALL LIGHT IN REACH.
--- NOTE | 2021-02-01 23:22 | NUR ---
PT REPORTS NAUSEA, PRN NAUSEA MED PROVIDED. CALL LIGHT IN REACH.
--- NOTE | 2021-02-02 01:30 | NUR ---
PT RESTING IN BED, EYES CLOSED. IV FLUIDS INFUSING PER ORDER. RR EVEN, UNLABORED. CALL LIGHT IN REACH.
--- NOTE | 2021-02-02 03:53 | NUR ---
PT RESTING IN BED, EYES CLOSED. IV FLUIDS INFUSING PER ORDER. RR EVEN, UNLABORED. CALL LIGHT IN REACH.
--- NOTE | 2021-02-02 04:21 | NUR ---
IV PUMP ALARMING, NEW BAG IV FLUIDS PROVIDED. CALL LIGHT IN REACH.
--- NOTE | 2021-02-02 07:13 | NUR ---
REPORT RECEIVED FROM ANGELA MYERS. PT RESTING IN BED, AWAKE AND ALERT. PT REPORTS 4/10 PAIN THAT IS TOLERATBLE AT THIS TIME, PT DENIES NEED FOR ADDITIONAL PAIN MEDICATION, K-PAD IN PLACE. PT REQUESTS CRANBERRY JUICE, PROVIDED, NO ADDITIONAL REQUESTS OR COMPLAINTS. CALL LIGHT WITHIN REACH. BED RAILS UP.
[2021-02-02] MEDS ORDERED: OMEPRAZOLE20 MG PO (08:05)
[2021-02-02] MEDS ORDERED: DELZICOL400 M1 PO (08:06)
[2021-02-02] MEDS ORDERED: PREDNISONE10 MG PO (08:06)
--- NOTE | 2021-02-02 08:57 | NUR ---
MORNING ASSESSMENT AND MEDICATIONS DUE. PT RESTING IN BED, REPORTS LOWER ABDOMIAL PAIN INCREASING NOW UP TO 7/10. PT DESCRIBES PAIN "REALLY BAD CRAMPING." ABDOMEN FIRM TO TOUCH, GUARDED, BOWEL TONES ACTIVE. K PAD IN PLACE. HEART TONES REGULARD. LUNG SOUNDS CLEAR. PT REPORTS HE IS PASSING GAS. MEDICATION GIVEN, EDUCATION DONE WITH PT REGARDING PREDNISONE AND NEW MEDICATIONS. MD TO BEDSIDE FOR ROUNDS. PT VERBALIZES UNDERSTANDING OF PLAN OF CARE. PT DENIES ADDITIONAL REQUESTS OR COMPLAINTS. CALL LIGHT WITHIN REACH. BED RAILS UP.
[2021-02-02] MEDS ORDERED: HYDROMORPHONE HC2 MG PO (09:11)
--- NOTE | 2021-02-02 10:19 | NUR ---
PT TRANSITIONING TO ORAL PAIN MEDICATIONS. REPORTS 5/10 LOWER ABDOMINAL PAIN AT THIS TIME. ORAL MEDICATION GIVEN (SEE MAR). PAIN MEDICATIION EDUCATION DONE WITH PT WHO VERBALIZES UNDERSTANDING AND STATES HIS QUESTIONS HAVE BEEN ANSWERED. LUNCH ORDER PLACED. PT DENIES ADDITIONAL REQEUSTS OR COMPLAINTS. CALL LIGHT WITHIN REACH. BED RAILS UP.
--- NOTE | 2021-02-02 11:18 | NUR ---
THIS RN TO ROOM TO CHECK ON PT. PT RESTING IN BED. PT REPORTS 6/10 ABDOMINAL PAIN. MEDICATION GIVEN TO TITRATE UP TO FULL DOSE. PT HAS K PAD IN PLACE. PT DENIES ADDITIONAL REQUESTS OR COMPLAINTS. EDUCATION DONE REGARDING MESALAMINE PURPOSE AND SIDE EFFECTS, PT VERBALIZES UNDERSTANDING. CALL LIGHT WITHIN REACH. BED RAILS UP.
--- NOTE | 2021-02-02 12:25 | NUR ---
RN IN WITH PT, WILL CHECK BACK
--- NOTE | 2021-02-02 12:30 | NUR ---
THIS RN TO ROOM TO CHECK ON PT. PT EATING LUNCH. PT REPORTS 2/10 PAIN AND DENIES NEED FOR ADDITIONAL PAIN MEDICATION. ICE WATER REFILLED AND CLEAR ENSURE PROVIDED. PT DENIES ADDITIONAL REQUESTS OR COMPLAINTS AT THIS TIME. cALL LIGHT WITHIN REACH. BED RAILS UP.
--- NOTE | 2021-02-02 15:05 | NUR ---
AFTERNOON ASSESSMENT AND MEDICATION DUE. PT RESTING IN BED. DR. BRICE TO BEDSIDE, PT REPORTS PAIN IS INCREASING. PT ALSO STATES THAT PAIN HAS BEEN WELL CONTROLED ON ORAL DILAUDID. PT REPORTS HE IS READY FOR ORAL PAIN MEDICATION. PT STATES HE WOULD LIKE TO GO HOME TODAY AND CONTINUE ORAL MEDICATIONS AT HOME. DR. BRICE AND DR. ROSADO UPDATED. DR. GRAVES TO BEDSIDE FOR ROUNDS. ABDOMEN CONTINUES TO BE TENDER TO TOUCH, ACTIVE BOWEL TONES NOTED. PT DENIES ANY BOWEL MOVEMENTS THIS SHIFT. PT CONFIRMS THAT HE IS PASSING GAS. DISCHRAGE EDUCATION DONE WITH PT REGARDING MEDICATIONS, FOLLOW UP AND LOW FIBER DIET AT HOME. PT DENIES ADDITIONAL REQUESTS OR COMPLAINTS. CALL LIGHT WITHIN REACH. PT UPDATING FAMILY.
--- NOTE | 2021-02-02 15:06 | OR ---
[facility] [address] [place], [place] [address] Signed DATE OF OPERATION: 02/01/2021 SURGEON: Shae Brice MD PREOPERATIVE DIAGNOSIS: Left-sided inflammatory change of colon on CT scan; recent rectal bleeding and abdominal pain. POSTOPERATIVE DIAGNOSIS: Segmental colitis extending from 35 cm to 25 cm, remaining colon and rectum clinically normal. PROCEDURE: Total colonoscopy to cecum with multiple biopsies. ANESTHESIA: Intravenous sedation, fentanyl 200 mcg and Versed 7 mg. INDICATION: This 25-year-old very fit and healthy black man, was admitted by Dr. Munguia and now cared for by Dr. Crow for complaints of abdominal pain mostly in the lower abdomen with associated rectal bleeding initially. He has been treated with broad-spectrum antibiotic therapy. His symptoms continue to worsen. Consultation was undertaken yesterday and my review of the CT scan that showed inflammatory changes of portion of the left colon suggested probable inflammatory bowel disease though this was uncertain. There is no family history of inflammatory bowel disease, colon cancer or other issue, though his family history is uncertain as he is adopted. He has undergone bowel preparation. He is now to undergo colonoscopy. He understands the risks of bleeding, infection, and perforation. Empiric treatment was begun yesterday with hydrocortisone 100 mg IV q.8 hours as well. FINDINGS: The prep was good. Complete colonoscopy was undertaken to the cecum without question. He had a segment of inflammatory changes of the colon extending from about 35 cm to 25 cm but the remaining colon proximally and distally including the rectum was endoscopically normal. It is uncertain what the underlying etiology. It did not have the appearance of ischemic colitis in any way and not completely typical of ulcerative colitis, so the possibility of Crohn disease remains as well. Pathology of the biopsies is pending of course. Electronically Signed By: SHAE BRICE MD 02/02/21 1506 PATIENT NAME: ANTOINE LEA OPERATIVE REPORT DATE OF : [birth year] REPORT #: [id number] PHYSICIAN: SHAE BRICE MD PCP: CONSTANCE ESTEBAN PA-C REPORT IS CONFIDENTIAL AND NOT TO BE RELEASED WITHOUT AUTHORIZATION [facility] [address] [place], [place] [address] Signed DESCRIPTION OF PROCEDURE: The patient was brought to the endoscopy suite and placed in lateral decubitus position, given intravenous sedation to the point of slurred speech and nystagmus with full cardiopulmonary monitoring. Additional sedation was given as needed throughout the procedure. Digital rectal examination was normal. An Olympus video colonoscope was passed in the rectum and manipulated throughout the colon noting at approximately 30-35 cm or so in area of circumferential inflammatory change of the mucosa that did not have ulcerations and certainly no sign of ischemic change. Passage through this area was rather uncomfortable and additional sedation was given, but the scope was passed beyond this ultimately to the cecum. The cecum appeared normal. Biopsies were taken of it nevertheless. The scope was withdrawn and careful examination upon withdrawal of scope showed no sign of abnormality until approximately 35 cm from the anal verge where the inflammatory process was noted once again. Biopsies were taken in this area multiply. Narrow band imaging confirmed the inflammatory nature of this lesion as well. Additional biopsies were taken at the lower extent of the problem at about 25 cm. Withdrawal beyond this showed no sign of abnormality into the distal sigmoid or rectum. Retroflexed view was normal. The scope was removed and the patient was taken to the recovery room in good condition. CONCLUDING DIAGNOSIS: Segmental colitis of the sigmoid, etiology uncertain. PLAN: We will recommend continued use of steroids and anti-inflammatory agents until the pathology is better defined. Would change his antibiotic regimen primarily to Flagyl 250 p.o. t.i.d. Initiate a low-fiber diet as tolerated. Treat with prednisone 30 mg p.o. daily as well as start mesalamine 800 mg p.o. t.i.d. and ascertain the continued use of PPI medication, pantoprazole 40 mg p.o. daily. Shae Brice MD JM/MODL /[id number] Electronically Signed By: SHAE BRICE MD 02/02/21 1506 PATIENT NAME: ANTOINE LAE OPERATIVE REPORT DATE OF : [birth year] REPORT #: [id number] PHYSICIAN: SHAE BRICE MD PCP: CONSTANCE ESTEBAN PA-C REPORT IS CONFIDENTIAL AND NOT TO BE RELEASED WITHOUT AUTHORIZATION [facility] [address] [place] [address] Signed : MD Patsy Velez MD Copies: HAILEY MUNGUIA CYNTHIA MD ~ Electronically Signed By: SHAE BRICE MD 02/02/21 1506 PATIENT NAME: ANTOINE LEA SHERMAN OPERATIVE REPORT DATE OF : [birth year] REPORT #: [id number] PHYSICIAN: SHAE BRICE MD PCP: CONSTANCE ESTEBAN PA-C REPORT IS CONFIDENTIAL AND NOT TO BE RELEASED WITHOUT AUTHORIZATION
--- NOTE | 2021-02-02 16:18 | NUR ---
PT READY FOR DISCHARGE. PT REPORTS 4/10 PAIN THAT IS WELL CONTROLED. PT UP TO DRESS SELF, NO ASSISTANCE NEEDED. IV DC'D PER PROTOCOL, GAUZE AND COBAN APPLIED. VITAL SIGNS STABLE. DISCHARGE INSTRUCTIONS REVIEWED WITH PT. PT VERBALIZES UNDERSTANDING OF INSTRUCTIONS, MEDICATIONS, FOLLOW UP AND WHEN TO CALL THE DOCTOR. PT STATES HIS QUESTIONS HAVE BEEN ANSWERED. PT WHEELED FROM MED SURG WITH BELONGINGS TO MEET AT FRONT OF HOSPITAL, NO ADDITIONAL REQUESTS OR COMPLAINTS.
--- NOTE | 2021-02-02 16:27 | PATH ---
[facility] [address] [place], [place] [address] Signed SPECIMEN(S): A CECUM BIOPSY SPECIMEN(S): B COLON BIOPSY AT 30 CM SPECIMEN(S): C COLON BIOPSY AT 25 CM SPECIMEN(S): D RECTAL BIOPSY SPECIMEN SOURCE: A. CECUM BIOPSY B. COLON BIOPSY AT 30 CM C. COLON BIOPSY AT 25 CM D. RECTAL BIOPSY CLINICAL HISTORY: Colitis/GI bleed. Postop: Inflammation of sigmoid. MICROSCOPIC DESCRIPTION: Histologic sections of all submitted blocks are examined by light microscopy. These findings, together with the gross examination, support the pathologic diagnosis. FINAL PATHOLOGIC DIAGNOSIS: A. Colon, cecum, biopsy: - Colonic mucosa with no histopathologic abnormality. - Negative for active, chronic, or microscopic colitis. - Negative for dysplasia or malignancy. B. Colon, 30 cm, biopsy: - Colonic mucosa with focal lamina propria hyalinization and hemorrhage, see comment. - Negative for active, chronic, or microscopic colitis. - Negative for dysplasia or malignancy. C. Colon, 25 cm, biopsy: - Colonic mucosa with patchy lamina propria hemorrhage. - Negative for active, chronic, or microscopic colitis. - Negative for dysplasia or malignancy. D. Rectum, biopsy: - Rectal mucosa with no histopathologic abnormality. - Negative for active, chronic, or microscopic colitis. - Negative for dysplasia or malignancy. COMMENT: Regarding specimen B: Sections demonstrate fragments of colonic mucosa with a focal subtle lamina propria hyalinization/fibrosis, lamina propria hemorrhage, and focal mild reactive crypts. No PATIENT NAME: ANTOINE LEA [facility] DATE OF : [birth year] REPORT #: [id number] PHYSICIAN: BRYCE PATHOLOGY PCP: CONSTANCE ESTEBAN PA-C REPORT IS CONFIDENTIAL AND NOT TO BE RELEASED WITHOUT AUTHORIZATION [facility] [address] [place], [place] [address] Signed mucosal ulceration or crypt dropout is seen. These findings are nonspecific and subtle, but raise the possibility of early/mild ischemic injury, drug-/medication induced injury, or infection. Clinical correlation is required. NAL:mfr:C2NR GROSS DESCRIPTION: Four specimens are received in four containers, labeled "BM." A. The specimen, labeled "BM, 1," and designated on the requisition "cecum," is received in formalin and consists of two carrington soft tissue fragments that measure 0.3 cm in greatest dimension. The specimen is entirely submitted in cassette (A1). B. The specimen, labeled "BM, 2," and designated on the requisition "colon at 30 cm," is received in formalin and consists of four carrington soft tissue fragments that measure 0.1-0.3 cm in greatest dimension. The specimen is entirely submitted in cassette (B1). Smallest fragment is minute and may not survive processing. C. The specimen, labeled "BM, 3," and designated on the requisition "colon at 25 cm," is received in formalin and consists of two carrington soft tissue fragments that measure 0.3 cm in greatest dimension. The specimen is entirely submitted in cassette (C1). D. The specimen, labeled "BM, 4," and designated on the requisition "rectal," is received in formalin and consists of two carrington soft tissue fragments that measure 0.3 cm in greatest dimension. The specimen is entirely submitted in cassette (D1). AT (under the direct supervision of a pathologist) The Gross Description was prepared using a voice recognition system. The report was reviewed for accuracy; however, sound-alike word errors, addition and/or deletions may occur. If there is any question about this report, please contact Client Services. PERFORMING LABORATORY: The technical component was performed by [facility] [address] (Hospice Care Transitions Coordinator: Sunshine Kinsey MD; CLIA# [id number]). Professional interpretation was performed by [facility], [address] [place], [place] [address] (CLIA# [id number]). Diagnostician: Carla Lima MD Pathologist Electronically Signed 02/02/2021 PATIENT NAME: ANTOINE LEA [facility] DATE OF : [birth year] REPORT #: [id number] PHYSICIAN: BRYCE ROSA PCP: CONSTANCE ESTEBAN PA-C REPORT IS CONFIDENTIAL AND NOT TO BE RELEASED WITHOUT AUTHORIZATION [facility] [address] [facility] [place], [place] [address] Signed Copies: ~ PATIENT NAME: ANTOINE LEA [facility] DATE OF : [birth year] REPORT #: [id number] PHYSICIAN: BRYCE ROSA PCP: CONSTANCE ESTEBAN PA-C REPORT IS CONFIDENTIAL AND NOT TO BE RELEASED WITHOUT AUTHORIZATION
== END 2021-02-02 16:35 | disposition home or self-care (01) | DRG 392 ==
LOC: ED 11:57 → MS 11:59
PROVIDERS: Surgery; ADMIT Student in an Organized Health Care Education/Training Program; ATTEND Student in an Organized Health Care Education/Training Program
PROC: 0DBE8ZX Excision of Large Intestine, Via Natural or Artificial Opening Endoscopic, Diagnostic (ICD-10-PCS; 2021-02-01)
PROC: 0DBP8ZX Excision of Rectum, Via Natural or Artificial Opening Endoscopic, Diagnostic (ICD-10-PCS; 2021-02-01)
PROC: 0DBH8ZX Excision of Cecum, Via Natural or Artificial Opening Endoscopic, Diagnostic (ICD-10-PCS; principal; 2021-02-01 10:19)
DX: K52.9 Noninfective gastroenteritis and colitis, unspecified (principal); Q24.5 Malformation of coronary vessels; Z20.822 Contact with and (suspected) exposure to COVID-19; K21.9 Gastro-esophageal reflux disease without esophagitis; F17.220 Nicotine dependence, chewing tobacco, uncomplicated; G47.00 Insomnia, unspecified; I48.91 Unspecified atrial fibrillation; Z90.49 Acquired absence of other specified parts of digestive tract; Z98.890 Other specified postprocedural states; Z91.048 Other nonmedicinal substance allergy status
CPT/HCPCS: 74177; 80048; 80053; 80500; 83690; 83735; 85025; 86850; 86900; 86901; 87040; 87045; 87493; 94762; 96375; 96376; 99153; 99285-25; C9113; C9803; G0378; G0500; J0696; J0780; J1170; J1720; J1885; J2250; J2405; J2765; J3010; J7030; J7121; J7512; Q9967; U0003

== ENCOUNTER 2021-07-08 22:16 | Inpatient (IN) | payer BC, OTHER ==
[~2021-07-08] VITALS: Ht 167.6 cm; Wt 81.0 kg
--- NOTE | ~2021-07-08 | CONS ---
[facility] [address], [place] [address] Draft DATE OF CONSULTATION: 07/09/2021 REQUESTING PHYSICIAN: Collins Cabezas M.D. PROBLEM: Recent rectal bleeding, abdominal pain, and history of colitis in the past. HISTORY OF PRESENT ILLNESS: This 25-year-old black man is well known to me from the past. I saw him in the not too distant past, anticipating colonoscopy later in this month. He was hospitalized in January of 2021, with abdominal pain and found to have colitis on colonoscopy. The pathology reports were nonspecific as to the type of colitis. He had been presumed is inflammatory bowel disease and was treated initially with steroids and mesalamine and has been on mesalamine since that time. Two weeks ago, he started to develop constipation. He was considered to have imemrfsv-pa-pvcyze constipation. He had been seen in the office and plans were made for colonoscopy to assess whether or not he had colitis at all. He was encouraged to maintain his mesalamine use, however. He began having left lower abdominal pain more recently, had a large bowel movement yesterday followed by blood per rectum. No sign of blood upon wiping. He had initially told me that he did have pain with bowel movement, but later recanted that and said he had no pain in the anal area, but only in the abdominal area. He has had no diarrhea at all. He was admitted by Dr. Cabezas for further evaluation and care. PAST MEDICAL HISTORY: He does include gastroesophageal reflux disease, as well as history of atrial fibrillation, which is no longer an issue. CURRENT MEDICATIONS: Include trazodone, multivitamin, calcium carbonate, Tums, pantoprazole, cyclobenzaprine, and mesalamine. SOCIAL HISTORY: He has worked for the [employer] for quite some time. He is a patient of Mayda Singh. REVIEW OF SYSTEMS: He denies any shortness of breath or chest pain. He denies anal pain. He does have some persistent left-sided abdominal pain. PHYSICAL EXAMINATION: GENERAL: A very fit and healthy black man, who looks to be not systemically toxic in PATIENT NAME: ANTOINE LEA CONSULTATION DATE OF : [birth year] REPORT #: [id number] PHYSICIAN: SHAE BRICE MD PCP: MAYDA SINGH PA-C REPORT IS CONFIDENTIAL AND NOT TO BE RELEASED WITHOUT AUTHORIZATION [facility] [address], [place] [address] VITAL SIGNS: Temperature is 97.6, pulse 59, and blood pressure 138/64. NECK: Shows no thyromegaly or cervical adenopathy. Trachea is midline. CHEST: Clear. HEART: Regular, without murmur. ABDOMEN: Muscular and soft. There is no focal tenderness, only mild tenderness in the left side. EXTREMITIES: Show no clubbing, cyanosis, or edema. LABORATORY STUDIES: Showed white count on admission of 8.9, now 8.2; hematocrit 44.3; and platelets now 254,000. Chem profile shows normal electrolytes, calcium 8.2 (low). Serologic test shows no sign of influenza and COVID is negative. IMAGING DATA: CT scan was performed yesterday, July 08 at 11 p.m. showed no specific abnormality related to the bowel. I reviewed those images myself. The liver appears normal. Stomach had a fair amount of enteric contents. Left and right kidneys appeared normal. Small bowel is nondistended. The left colon does not appear acutely inflamed, certainly not distended or obstructed in any way. There is no sign of ureteral dilation or nephrolithiasis that I can tell. The official report describes a nonobstructive bowel gas pattern without acute inflammatory changes and although there was mild wall thickening of the descending colon, rectosigmoid, it was attributed primarily to under distention. There is no sign of excess stool or impaction in any way. ASSESSMENT AND PLAN: Although, he had inflammatory changes previously, they were not attributing to any specific etiology. He now has constipation rather than diarrhea. I have considered and discussed with him previously the possibility that he has an underlying irritable bowel type problem, this is still a possibility. Colonoscopy was anticipated later in the month and since he has an acute episode at this time, we would recommend colonoscopy as had been described by Dr. Cabezas. We will plan to do this tomorrow after bowel prep today. I was initially concerned that he may have an anal fissure since he had hard bowel movement and so forth, but he had no pain on defecation and although there was a fair amount of blood. Apparently, no ongoing pain or bleeding. Colonoscopy will better characterize the current status of his colon and allow for exam under anesthesia for possible anal fissure anyway. The risks of bleeding, infection, and perforation were reviewed with him. He understands and wished to proceed. PATIENT NAME: ANTOINE LEA CONSULTATION DATE OF : [birth year] REPORT #: [id number] PHYSICIAN: SHAE BRICE MD PCP: MAYDA SINGH PA-C REPORT IS CONFIDENTIAL AND NOT TO BE RELEASED WITHOUT AUTHORIZATION [facility] [address] [place] [address] Draft MD ANGELINE Anderson/CHERL /[id number] cc: MD Mayda Justice PA-C Copies: COLLINS CABEZAS MD, CHLOE K PA-C ~ PATIENT NAME: ANTOINE LEA TAYLOR CONSULTATION DATE OF : [birth year] REPORT #: [id number] PHYSICIAN: SHAE BRICE MD PCP: MAYDA SINGH PA-C REPORT IS CONFIDENTIAL AND NOT TO BE RELEASED WITHOUT AUTHORIZATION
--- NOTE | ~2021-07-08 | OR ---
[facility] [address], [place] [address] Draft DATE OF OPERATION: 07/10/2021 SURGEON: Shae Brice MD PREOPERATIVE DIAGNOSES: 1. History of left-sided nonspecific colitis. 2. Recent recurrence of left lower abdominal pain, bowel and rectal bleeding following episode of constipation. POSTOPERATIVE DIAGNOSIS: Minimal edematous changes of rectosigmoid. No evidence of fissure or hemorrhoids or polyps or diverticular disease or active colitis. PROCEDURE: Total colonoscopy to cecum with intubation of ileum and biopsy of ileum, cecum, left colon, sigmoid, and rectum. ANESTHESIA: Intravenous sedation with fentanyl 100 mcg, Versed 6 mg. INDICATION: This 25-year-old black man, who is a patient of Dr. Sumner, having been admitted to the hospital on July 08, 2021, with complaints of recent vemmzxzn-tz-jxhecm constipation. He also had gross blood per rectum upon defecation after large bowel movement, but no associated pain upon defecation in the anorectum. Notably, he was hospitalized in January of 2010, with abdominal pain, found to have colitis of the left colon on colonoscopy. Path reports were very nonspecific as to type of colitis. He has been on steroids and maintenance of mesalamine, but still was having left lower abdominal pain from time to time and a plan for outpatient colonoscopy was outlined when I saw him last in the office. Since his hospitalization, he is now ongoing with left-sided abdominal pain. Colonoscopy at this point was deemed appropriate. The risks of bleeding, infection, and perforation were reviewed with him. He understands and wished to proceed. He has tolerated the bowel prep well. FINDINGS: Excellent bowel prep was noted. Complete colonoscopy was undertaken of the cecum. An intubation of the ileum was accomplished. The ileum was normal. Biopsies were obtained nevertheless. The cecum, transverse and proximal descending colon all appeared normal endoscopically. There was some minimal edema without sign of obvious inflammation of the sigmoid and rectosigmoid. Biopsies were obtained there. I saw no evidence of anal PATIENT NAME: ANTOINE LEA OPERATIVE REPORT DATE OF : [birth year] REPORT #: [id number] PHYSICIAN: SHAE BRICE MD PCP: MAYDA SINGH PA-C REPORT IS CONFIDENTIAL AND NOT TO BE RELEASED WITHOUT AUTHORIZATION [facility] [address], [place] [address] Draft fissure, thrombosed hemorrhoid, or active hemorrhoidal disease otherwise. DESCRIPTION OF PROCEDURE: The patient was brought to the endoscopy suite and placed in the lateral decubitus position given intravenous sedation to the point of slurred speech and nystagmus with full cardiopulmonary monitoring. The Olympus video colonoscope was passed in the rectum after digital rectal examination was found to be normal. The scope was advanced around the colon, ultimately intubating the cecum itself. The ileocecal valve and appendiceal orifice were normal. With various manipulations, the ileum was intubated and the mucosa appeared normal. Biopsies were obtained nevertheless of course. The scope was withdrawn and biopsies then taken of the cecum. Careful withdrawal of scope showed no sign of abnormality until approximately the mid sigmoid colon, where there is mild chronic inflammation, specifically edematous change (no visible vessels), but no sign of acute inflammation, stricture, neoplasm, or other abnormality. Biopsies were obtained there as well. The scope was withdrawn and biopsies taken of the rectum also. Retroflexed view was undertaken, which was normal. Careful withdrawal through the anal canal showed no sign of fissure. Once the scope was removed, the buttocks were and close inspection undertaken for fissure, which was not present. The patient was then taken to the recovery room in good condition. CONCLUDING DIAGNOSIS: It is uncertain why he would have such severe discomfort unless he has an underlying irritable bowel syndrome. Notably, he has had alternating diarrhea and constipation over many months. A low FODMAP diet may be beneficial for symptom control pending the final pathology reports of biopsies of the area in question. MD ANGELINE Anderson/MARLINE /[id number] cc: May[facility] Singh [facility]-C [facility] MD PATIENT NAME: ANTOINE LEA OPERATIVE REPORT DATE OF : [birth year] REPORT #: [id number] PHYSICIAN: SHAE BRICE MD PCP: MAYDA SINGH PA-C REPORT IS CONFIDENTIAL AND NOT TO BE RELEASED WITHOUT AUTHORIZATION [address] [place], [place] [address] Draft Copies: MAYDA SINGH PA-C, LOHITH VEERAPPA MD ~ PATIENT NAME: ANTOINE LEA CHICO OPERATIVE REPORT DATE OF : [birth year] REPORT #: [id number] PHYSICIAN: SHAE BRICE MD PCP: MAYDA SINGH PA-C REPORT IS CONFIDENTIAL AND NOT TO BE RELEASED WITHOUT AUTHORIZATION
[~2021-07-08 22:16] MED LIST changes: +DELZICOL400 M1 PO; +HYDROMORPHONE HC2 MG PO; +MULTI VITAMIN1 EACH PO; +OMEPRAZOLE20 MG PO; +PREDNISONE10 MG PO; +TUMS200 MG PO
--- OUTSIDE RECORDS SUMMARY | 2021-07-08 22:18 | XMS ---
PreManage Notification: ANTOINE LEA Security Fiction And Nonfiction Author Events No recent Security Events currently on file CRITERIA MET - [facility] C[facility] PROVIDERS CONSTANCE ESTEBAN Physician Tuck Pointer Helper Current PHONE: [phone] Amanda Caballero Physician Tuck Pointer Helper 03/06/2017-Caio Khalil PA-C PHONE: Unknown Sean has no Care Guidelines for this patient. Lorie VISIT COUNT (12 MO.) 1 Devendra Schumacher TOTAL 4 NOTE: Visits indicate total known visits. ED/UCC VISIT TRACKING (12 MO.) 07/08/2021 22:17 NATTY Castellanos [place] TYPE: Emergency COMPLAINT: - BLOOD IN STOOL 01/29/2021 11:58 NATTY Castellanos [place] TYPE: Emergency COMPLAINT: - ABD PAIN, RECTAL BLEEDING 10/23/2020 20:14 NATTY Castellanos [place] TYPE: Emergency COMPLAINT: - CHEST PAIN 09/11/2020 14:46 Devendra Velez OR TYPE: Emergency DIAGNOSES: - Right upper quadrant pain - abd pain INPATIENT VISIT TRACKING (12 MO.) 01/29/2021 20:26 NATTY Castellanos [place] TYPE: Medical Surgical COMPLAINT: - COLITIS/GI BLEED DIAGNOSES: - Acquired absence of other specified parts of digestive tract - Nicotine dependence, chewing tobacco, uncomplicated - Gastro-esophageal reflux disease without esophagitis - Other specified postprocedural states - Malformation of coronary vessels - Insomnia, unspecified - Other nonmedicinal substance allergy status - Noninfective gastroenteritis and colitis, unspecified - Unspecified atrial fibrillation 10/23/2020 20:15 NATTY Castellanos OR TYPE: Observation COMPLAINT: - AFIB DIAGNOSES: - 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
[2021-07-08] MEDS ORDERED: PANTOPRAZOLE SO20 MG PO (22:35)
--- NOTE | 2021-07-09 00:44 | NUR ---
TELEPHONE REPORT RECEIVED FROM ED ELIECER. QUESTIONS ANSWERED, AWAITING pt's ARRIVAL TO [facility] FLOOR.
--- NOTE | 2021-07-09 00:54 | NUR ---
[facility], ORIENTED TO ROOM. QUCK ADMISSION COMPLETE. pt A/OX4, CALL LIGHT IN REACH. REPORTS PAIN IS TOLERABLE 4/10, DENIES NEED FOR PAIN MEDICATION AT THIS TIME. IV SITE WNL, FLUSHES EASILY. FLUIDS INFUSING DIRECTED. NO FURTHER NEEDS. pt STEADY ON FEET AND IS INDEPENDENT IN ROOM.
--- NOTE | 2021-07-09 01:45 | NUR ---
SPOKE TO ED DR RICH WHO PLACED BRIDGE ORDERS FOR pt, ORDERS FOR EKG AT 0700 AND LAB ORDERS FOR CBC AND BMP FOR 0600 ARE PUT IN FOR 07/10/21. CLARIFIED ORDERS AND VERIFIED READ BACK VIA TELEPHONE THAT ORDERS SHOULD BE DONE LATER THIS MORNING IN AM OF 07/09/21. ORDERS UPDATED BY THIS RN.
--- NOTE | 2021-07-09 04:08 | NUR ---
CALL LIGHT ANSWERED, PRN PAIN MEDICATION GIVEN FOR 8/10 PAIN ALONG WITH PRN NAUSEA MEDICATION, 175MLS EMESIS NOTED. YELLOW IN COLOR. NO FURTHER NEEDS, CALL LIGHT IN REACH. IV SITE REMAINS WNL.
--- NOTE | 2021-07-09 06:15 | NUR ---
IN TO GET VITALS, FRESH ICE WATER FILLED, URINAL EMPTIED, NO FURTHER NEEDS AT THIS TIME
--- NOTE | 2021-07-09 06:18 | NUR ---
PRN PAIN MEDICATION GIVEN FOR 8 PAIN AND SCHEDULED IV ABX INFUSING DIRECTED, IV SITE WNL. VSS AND I&O'S COMPLETE. NO FURTHER NEEDS, CALL LIGHT IN REACH.
[2021-07-09] MEDS ORDERED: CYCLOBENZAPRINE10 MG PO (09:09)
[2021-07-09] MEDS ORDERED: MESALAMINE DR400 MG PO (09:10)
--- NOTE | 2021-07-09 10:03 | NUR ---
ASSESSMENT COMPLETE. PT STATES HE FEELS BETTER WITH LITTLE NAUSEA AND WAS ABLE TO TAKE AN OXY FOR PAIN. TENDER IN ALL QUADRANTS, WHICH IS NOT NORMAL FOR HIM.
--- NOTE | 2021-07-09 13:56 | NUR ---
ADMINISTERED SCHEDULED AND PRN MEDS. PT STATES THE GATORADE MAKES HIM NAUSOUS, GIVEN ZOFRAN. HE STATES HE WILL TRY AND TEHN CALL IF HE CAN'T GET IT DOWN AND WE WILL TRY SOMETHING ELSE.
--- NOTE | 2021-07-09 15:19 | EKG ---
[facility] [address] [facility] [place] [address] Signed Normal sinus rhythm Nonspecific ST and T wave abnormality Abnormal ECG When compared with ECG of 25-OCT-2020 20:05, No significant change was found Confirmed by COLLINS CABEZAS MD ([id number]) on 07/09/2021 3:19:34 PM Electronically Signed By: COLLINS CABEZAS MD 07/09/21 1519 PATIENT NAME: ANTOINE LEA [place] Electrocardiogram DATE OF : [birth year] PHYSICIAN: COLLINS CABEZAS MD REPORT #: [id number] REPORT IS CONFIDENTIAL AND NOT TO BE RELEASED WITHOUT AUTHORIZATION
--- NOTE | 2021-07-09 17:40 | NUR ---
PT UP TO RESTROOM, ACTIVITLY VOMITTING AND HAVING DIAHRREA. GIVEN COMPAZINE.
--- NOTE | 2021-07-09 19:16 | NUR ---
REPORT RECEIVED FROM ANTHONY MILLER. PT IS UNDERGOING BOWEL PREP TO BE NPO AT MIDNIGHT, PATIENT HAS BEEN EXPERIENCING VOMITING WITH PREP HAS RECEIVED COMPAZINE.
--- NOTE | 2021-07-09 19:40 | NUR ---
PT SITTING IN BED USING LAPTOP. GIVEN APPLE CIDER PER REQUEST. PT STATES PAIN IS "OK" AND NAUSEA IS "FINE" AT THIS TIME. DENIES OTHER NEEDS. CALL LIGHT IN REACH.
--- NOTE | 2021-07-09 20:30 | NUR ---
PATIENT PROVIDED WITH BED BATH WIPES, LOTION, NEW GOWN, NEW SHEET, WARM BLANKET AND GREEN BLANKET. V/S AND I&O'S TAKEN AND CHARTED. STOOL SAMPLE COLLECTED AND SENT TO LAB.
--- NOTE | 2021-07-09 22:18 | NUR ---
CALLED DR CABEZAS PATIENT HAS COMPLAINED OF GENERALZED ITCHING AND A FEELING OF "CRAWLING OUT OF MY SKIN" SINCE PRIOR TO THIS SHIFT STARTING. PT HAS RECEIVED COMPAZINE AND PHENRGAN THIS REPORTED TO DR CABEZAS. VERBAL ORDERS RECEIVED FROM DR CABEZAS FOR 12.5 MG BENADRYL IV PRN FOR ITCHING
--- NOTE | 2021-07-09 23:47 | NUR ---
checked on patient. he is still awake playing on laptop. reports feeling "kind of sleepy" reports being "less itchy" and improved pain. patient has gotten up to void using urinal x 2. has had 1 more lose stool. pt verbalized understanding he is to be "nothing by mouth" starting at midnight.
--- NOTE | 2021-07-10 00:20 | NUR ---
checked on patient, he is NPO and sign has been placed on his outside door. patient no longer has access to PO fluids, and pt understands need for this as he may be having a scope later today. still continues to report itching but it has not worsened per pt. reports he is going to try and sleep now
--- NOTE | 2021-07-10 02:55 | NUR ---
PT APPEARS TO BE ASLEEP, RESPIRATIONS EVEN AND UNLABORED, CALL LIGHT IN REACH. LR INFUSING
--- NOTE | 2021-07-10 04:23 | NUR ---
pt reporting nausea, no emesis, given zofran 4 mg iv. also c/o sensitivity to iv site, checked no infiltration noted informed pt i will atempt to find a different spot.
--- NOTE | 2021-07-10 05:10 | NUR ---
PATIENT ASSESSMENT IS COMPLETE. STARTED A NEW IV TO PATIENT'S RIGHT HAND, 20 GAUGE, DUE TO PT REPORTING LEFT AC SITE WAS BECOMING UNCOMFORTABLE. THAT SITE WAS ASSESSED THERE WAS NO INFILTRATION AND BLOOD STILL PULLED. REMOVED TIP INTACT GAUZE AND COBAN APPLIED. MAINTENANCE FLUIDS PLACED TO RIGHT HAND. PT ALSO WAS REQUESTING SOMETHING FOR PAIN, 7/10 ABDOMINAL. MEDICATED WITH PRN MORPHINE 4 MG. INSTRUCTED PT TO USE CALL LIGHT FOR SAFETY IF NEEDING TO VOID OR OTHER NEEDS, RENIFORCED TO PT THE MORPHINE CAN MAKE HIM LIGHTHEADED AND UNSTEADY. CALL LIGHT IN REACH.
--- NOTE | 2021-07-10 07:07 | NUR ---
Bedside shift report completed. Patient resting on her right side, has no needs beside sleep. Right great toe dressing Clean Dry Intact.
--- NOTE | 2021-07-10 08:26 | NUR ---
Patient continued to be at a level 7, IV Morphine given, along with his AM medciations. He was assessed, and updated on his plan of care. Patient verbalized understanding, and verbalizes no additional needs at this time.
--- NOTE | 2021-07-10 10:03 | NUR ---
patient appears to be resting with his eyes closed.
--- NOTE | 2021-07-10 10:54 | NUR ---
administered moprhine and phenergren for nausea and pain rated 9\10. pt does appear to be quite uncomfortable. in room.
--- NOTE | 2021-07-10 10:55 | NUR ---
PATIENT IN BED RESTING, VISITOR AND RN IN ROOM AT THIS TIME. VITALS AND I&O'S CHARTED. CALL LIGHT IN REACH. NO FURTHER NEEDS AT THIS TIME.
--- NOTE | 2021-07-10 12:00 | NUR ---
Spoke with pt and Tea. They live in a 1 story home. 2 steps. Pt was here around [place] for colitis. He is awaiting a colonoscopy. He denies needs and plans on dc to home with Tea when cleared.
--- NOTE | 2021-07-10 12:35 | NUR ---
Patient resting in bed, lights turned off, TV on. Pain continues at a 6-7,pain medication available at 1 pm. Updated the patient on schedule tenative time of 2 pm for his scope procedure, patient verbalized understanding.
--- NOTE | 2021-07-10 13:09 | NUR ---
Patient was given Oxycodone shortly ago, and updated on upcoming procedure. He is trying to rest at this time.
--- NOTE | 2021-07-10 14:25 | NUR ---
Patient off the unit for a scope procedure
--- NOTE | 2021-07-10 15:04 | NUR ---
medications reconciled using pharmacy records and patient interview
--- NOTE | 2021-07-10 15:36 | NUR ---
patient off the unit for a scope procedure
--- NOTE | 2021-07-10 15:40 | NUR ---
07/10/21 1540 Lillie Tipton 1536- PT ARRIVES TO PACU EASILY AROUSABLE TO VERBAL STIMULI. RESP EVEN AND UNLABORED. OXYGEN SAT HIGH 90'S TO 100% ON 3L VIA NC.
--- NOTE | 2021-07-10 16:39 | NUR ---
PT BACK TO ROOM. ON BSC FOR GAS PASSING. IN ROOM AND HELPING HIM. STATES HE IS HAVING QUITE A BIT OF ABDOMINAL PAIN.
--- NOTE | 2021-07-10 18:10 | NUR ---
patient still very foggy d/t the procedure. He has been advised to call when needing to get out of bed, he verbalizes understanding. Updated him again about his diet and that food is coming, he verbalized understanding. Educated him on his diet, however he will need to be re-educated harley. 07/11/21
--- NOTE | 2021-07-10 18:56 | NUR ---
patient c/o nausea and pain after attempting to drink/eat.
--- NOTE | 2021-07-10 19:00 | NUR ---
PATIENT IN BED RESTING AT THIS TIME. PATIENT COMPLAINS OF STOMACH HURTING AFTER EATING, RN NOTIFIED. VITALS AND I&O'S CHARTED. CALL LIGHT IN REACH. NO FURTHER NEEDS AT THIS TIME.
--- NOTE | 2021-07-10 19:48 | NUR ---
REPORT RECEIVED FROM DAY SHIFT RN. PT LYING IN BED ALERT AND ORIENTED. DENIES NEEDS. WHITE BOARD UPDATED. CALL LIGHT IN REACH.
--- NOTE | 2021-07-10 20:05 | NUR ---
PT REPORTS LEFT EAR/HEADACHE PAIN. PRN TYLENOL ADMINISTERED PER EMAR. WARM COMPRESS PROVIDED FOR EAR PAIN.
--- NOTE | 2021-07-10 21:00 | NUR ---
EVENING ASSESSMENT COMPLETE. SCHEDULED MEDS ADMINISTERED PER EMAR. IV ABX INFUSING WNL. PRN FOR 11/12 ABD PAIN ADMINISTERED. ABD FIRM AND MILDLY DISTENDED. BOWEL TONES ACTIVE. PT CONTINUES TO HAVE LOOSE STOOL. SBA TO BR TO VOID 600 ML CLEAR YELLOW URINE. BACK TO BED, DAVID WELL. FRESH ICE WATER AND HOT CIDER PROVIDED. PT DENIES FURTHER NEEDS. CALL LIGHT IN REACH.
--- NOTE | 2021-07-10 22:15 | NUR ---
IN TO HANG IV ABX. PT REPORTS ABD PAIN 7/10 AND NAUSEA. PRN GIVEN FOR PAIN AND N/V PER EMAR. SPRITE PROVIDED PER REQUEST.
--- NOTE | 2021-07-11 02:17 | NUR ---
VS AND I&O COMPLETE. PT UP TO BR TO VOID AND PASS GAS. BACK TO BED, DAVID WELL. PRN FOR PAIN ADMIN FOR 7/10 ABD PAIN. PT DENIES NAUSEA AT THIS TIME. NO FURTHER NEEDS. CALL LIGHT IN REACH.
--- NOTE | 2021-07-11 04:18 | NUR ---
PT RESTING IN BED WITH EYES CLOSED. RESPIRATIONS EVEN. CALL LIGHT IN REACH.
--- NOTE | 2021-07-11 06:43 | NUR ---
VS AND I&O COMPLETE. PRN FOR PAIN AND NAUSEA ADMINISTERED PER EMAR. SBA TO BR TO VOID 650 ML YELLOW URINE. BACK TO BED, DAVID WELL. WARM BLANKET PROVIDED. FRESH WATER AND SODA PROVIDED. NO FURTHER NEEDS. CALL LIGHT IN REACH.
--- NOTE | 2021-07-11 07:12 | NUR ---
REPORT RECEIVED FROM ANGELA DENTON. PT RESTING IN BED LOOKING AT COLONOSCOPY PICTURES. PT DENIES NAUSEA, REPORTS 3/10 PAIN THAT IS TOLERABLE AT THIS TIME. PT DENIES NEED FOR ADDITIONAL PAIN MEDICATION. NO ADDITIONAL REQUESTS OR COMPLAINTS. CALL LIGHT WITHIN REACH. BED RAILS UP.
--- NOTE | 2021-07-11 08:53 | NUR ---
MORNING ASSESSMENT AND MEDICATION DUE. PT RESTING IN BED ON BACK WITH HEAD OF BED ELEVATED TO 17 DEGREES. PT REPORTS 7/10 PAIN IN HIS "LEFT LOWER QUADRANT." PT REQUESTS MORPHINE. SEE MAR FOR MEDICATION GIVEN. PT DENIES NAUSEA. PT ALERT AND OREINTED. SITTING IN DARK ROOM, PT DECLINES OPENING OF BLINDS. LUNG SOUNDS CLEAR, HEART TONES REGULAR. NO ABDOMINAL DISTENTION NOTED, PT REPORTS ABDOMEN "FEELS NORMAL." BOWEL TONES ACTIVE. ABDOMEN SOFT TO TOUCH. PT ENCOURAGED TO AMBULATE TODAY, GOALS SENT AND WRITTEN ON WHITE BOARD. PT DENEIS ADDITIONAL REQUESTS OR COMPLAINTS. CALL LIGHT WITHIN REACH. BED RAILS UP.
--- NOTE | 2021-07-11 09:33 | NUR ---
THIS RN TO ROOM TO CHECK ON PT. PT SITTING UP IN BED EATING BREAKFAST. PT REPORTS 6/10 PAIN THAT IS "A LITTLE" BETTER." PT ENCOURAGED TO AMBULAT, STATES "MAYBE AFTER BREAKFAST." VITAL SIGNS STABLE. CALL LIGHT WITHIN REACH. BED RAILS UP. NO ADDITIONAL REQUESTS OR COMPLAINTS AT THIS TIME.
--- NOTE | 2021-07-11 10:16 | NUR ---
PT UP TO AMBULATE IN [place] X2 LAPS. PT INDEPENDANT WITH AMBLATION. PT DENIES REQUESTS OR COMPALINTS AT THIS TIME. PT REPORTS PAIN REMAINS AT 6/10. PT DENIES NAUSEA.
--- NOTE | 2021-07-11 10:52 | NUR ---
PT CALL LIGHT ON. PT REPORTS NAUSEA, PT UNSURE WHAT TRIGGERED THE NAUSEA. SEE MAR FOR MEDICATION GIVEN. PT LOOKING THROUGH NUTRITIONAL INFORMATION FROM [facility]. PT DENIES ADDITIONAL REQUESTS OR COMPLAINTS. CALL LIGHT WITHIN REACH. BED RAILS UP.
--- NOTE | 2021-07-11 11:17 | NUR ---
MED REC COMPLETE
--- NOTE | 2021-07-11 11:19 | NUR ---
THIS RN TO ROOM TO CHECK ON PT. PT REPORTS NAUSEA HAS RESOVLED. PT REQUESTS PAIN MEDICATION. PT RATES PAIN AT 6/10 SHARP BURNING PAIN IN ABDOMEN. SEE MAR FOR MEDICATION GIVEN. PT DRIFTS OF TO RESTING WITH EYES CLOSED. PT DENEIS ADDITIONAL REQUESTS OR COMPLAINTS. CALL LIGHT WITHIN REACH. BED RAILS UP. FAMILY AT BEDSIDE.
--- NOTE | 2021-07-11 11:23 | NUR ---
CONSULT RECEIVED FOR A LOW FODMAP DIET EDUCATION. PATIENT AND HIS SIGNIFICANT OTHER ARE IN HIS ROOM AFTER WALKING THE HALLS. PATIENT STATES HE HAS BEEN DEALING WITH DIARRHEA, STOMACH CRAMPING, AND LEFT LOWER QUADRANT PAIN OFF AND ON SINCE APRIL. I PROVIDED PATIENT WITH A LOW FODMAP LIST OF FOODS/DRINKS THAT ARE OK, FOODS THAT ARE HIGH IN FODMAPS TO AVOID, A GROCERY LIST, AND A HANDOUT ON WHAT ARE FODMAPS. I RECOMMENDED HE STICK TO A TRUE LOW FODMAP DIET FOR 6 WEEKS - HOPEFULLY HE FEELS BETTER. THEN HE CAN PICK 1 FOOD OR DRINK ITEM, SUCH WHOLE MILK, AND KEEP EVERYTHING ELSE LOW FODMAP FOR 2-3 DAYS TO SEE IF ANY SYMPTOMS ARISE. IF NOT, THEN HE CAN REINTRODUCE WHEAT-BASED PASTA FOR EXAMPLE. HE WILL NEED TO BE PATIENT AND REALLY KNOW THE LOW FODMAP FOODS TO HAVE ON HAND FOR MEALS AND SNACKS. HE AND HIS SIGNIFICANT OTHER HAVE GOOD UNDERSTANDING. QUESTIONS ANSWERED. MY CARD WAS PROVIDED WITH MY OFFICE # HE OR SHE CAN CALL IF THEY HAVE QUESTIONS LATER. LOW FODMAP LUNCH ORDER PLACED.
--- NOTE | 2021-07-11 12:13 | NUR ---
PUMP ALARMING, DISTAL OCCULSTION. IV ASSESSED, BLOOD RETURN NOTED BUT PT STATES IV IS PAINFUL AND REQUESTS IV BE REMOVED. IV DC'D PER PROTOCOL. GAUZE AND COBAN APPLIED. DR. CABEZAS UPDATED ON PT STATUS. DR CABEZAS STATES OK TO LEAVE IV OUT AT THIS TIME PT WILL BE TRANSISTIONED TO ORAL MEDICATIONS. IV FLUIDS STOPPED. MEDICATIONS GIVEN. PT UP IN ROOM TO RESTROOM. PT REPORTS ABDOMINAL PAIN IS NOW 3/10 AND WELL CONTROLLED. PT DENIES ADDITIONAL REQUESTS OR COMPLAINTS. CALL LIGHT WITHIN REACH. BED RAILS UP.
--- NOTE | 2021-07-11 12:35 | NUR ---
PTS SIGNIGICANT OTHER TO NURSES SATIONS STATING PT WANTS HIS LUNCH NOW. PT REQUESTS TO ORDER LUNCH. [facility] CALLED, ORDER PLACED. PT DENIES NAUSEA AND STATES PAIN IS "MUCH BETTER, ALMOST GONE." PT DENIES ADDITIONAL REQUESTS OR COMPLAINTS. CALL LIGHT WITHIN REACH. PT UP IN ROOM, INDEPENDANT AND STEADY ON FEET.
--- NOTE | 2021-07-11 12:44 | NUR ---
PT ALERT, ORIENTED-FAMILY AT BS. RM IS DARKENED, TV OFF. PT PLEASANT, SEEMS A LITTLE DISCOURAGED HE IS BACK DEALING WITH COLITIS ISSUE AGAIN. GAVE PT ENCOURAGEMENT, BLESSING AND LEFT G.POST. WILL FOLLOW
--- NOTE | 2021-07-11 14:53 | NUR ---
AFTERNOON ASSESSMENT AND MEDICATION DUE. MD TO BEDSIDE AND STATES PT IS READY FOR DISCHARGE. PT REPORTS 6/10 CRAMPING AND SHARP PAINS IN ABDOMENT. SEE MAR FOR MEDICATION GIVEN. PT REPORTS HE IS PASSING GAS. PT ALSO REQUESTS NAUSEA MEDICATIONS (SEE MAR FOR MEDICATION GIVEN). PT UP TO RESTROOM, INDEPENDANT IN ROOM, STEADY ON FEET. PT REPORTS HE FEELS READY TO GO HOME AND WANTS TO LEAVE SOON. ABDOMEN SOFT. BOWEL TONES ACTIVE. NO DISTENTION NOTED. ASSESSMENT OTHERWISE UNCHANGED. PT TALKING WITH FAMILY ON PHONE ABOUT DISCHARGE. PT UP TO DRESS SELF IN ROOM. NO ADDITIONAL REQUESTS OR COMPLAINTS. CALL LIGHT WITHIN REACH.
[2021-07-11] MEDS ORDERED: DICYCLOMINE HCL10 MG PO (14:55)
[2021-07-11] MEDS ORDERED: MIRALAX17 GM PO (14:56)
[2021-07-11] MEDS ORDERED: LOPERAMIDE2 MG PO (14:56)
--- NOTE | 2021-07-11 16:10 | NUR ---
PT READY FOR DISCHARGE. PT HAS DRESSED SELF, NO ASSISTANCE NEEDED. DISCHARGE INSTRUCTIONS REVIEWED WITH PT. PT VERBALIZES UNDERSTANDING OF INSTRUCTIONS, MEDICATIONS AND FOLLOW UP. PT STATES HIS QUESTIONS HAVE BEEN ANSWERED. VITAL SIGNS STABLE. PT AMBULATES FROM MED/SURG ([facility] WHEELCHA[employer] [facility]). NO ADDITIONAL REQUESTS OR CONCERNS.
--- NOTE | 2021-07-12 12:04 | PATH ---
[facility] [address] [place], [place] [address] Signed SPECIMEN(S): A CECUM BIOPSY SPECIMEN(S): B ILEUM BIOPSY SPECIMEN(S): C SPLENIC FLEXURE BIOPSY SPECIMEN(S): D SIGMOID COLON BIOPSY SPECIMEN(S): E COLON BIOPSY AT 15 CM SPECIMEN(S): F RECTAL BIOPSY SPECIMEN SOURCE: A. CECUM BIOPSY B. ILEUM BIOPSY C. SPLENIC FLEXURE BIOPSY D. SIGMOID COLON BIOPSY E. COLON BIOPSY AT 15 CM F. RECTAL BIOPSY CLINICAL HISTORY: Rectal bleeding, abdominal pain, colitis. Postop: Minimal sigmoid inflammation. FINAL PATHOLOGIC DIAGNOSIS: A. Cecum, biopsy: - Colonic mucosa with no significant pathologic changes. B. Ileum, biopsy: - Small-bowel mucosa with no significant pathologic changes. C. Colon, splenic flexure, biopsy: - Colonic mucosa with no significant pathologic changes. D. Colon, sigmoid, biopsy: - Colonic mucosa with no significant pathologic changes. E. Colon, 15 cm, biopsy: - Colonic mucosa with no significant pathologic changes. F. Rectum, biopsy: - Colonic mucosa with no significant pathologic changes. BRP:[id number] MICROSCOPIC EXAMINATION: Histologic sections of all submitted blocks are examined by light microscopy. These findings, together with the gross examination, support the pathologic diagnosis. GROSS DESCRIPTION: Six specimens are received in six containers, labeled "BM." PATIENT NAME: ANTOINE LEA BOULDER PATHOLOGY DATE OF : [birth year] REPORT #: [id number] PHYSICIAN: BRYCE ROSA PCP: CONSTANCE ESTEBAN PA-C REPORT IS CONFIDENTIAL AND NOT TO BE RELEASED WITHOUT AUTHORIZATION [facility] [address] [place], [place] [address] Signed A. The specimen, labeled "BM, 1," and designated on the requisition "cecum," is received in formalin and consists of two carrington soft tissue fragments that measure 0.2-0.3 cm in greatest dimension. The specimen is entirely submitted in cassette (A1). B. The specimen, labeled "BM, 2," and designated on the requisition "ileum," is received in formalin and consists of one carrington soft tissue fragment that measures 0.3 cm in greatest dimension. The specimen is entirely submitted in cassette (B1). C. The specimen, labeled "BM, 3," and designated on the requisition "splenic flexure," is received in formalin and consists of two carrington soft tissue fragments that measure 0.3 cm in greatest dimension. The specimen is entirely submitted in cassette (C1). D. The specimen, labeled "BM, 4," and designated on the requisition "sigmoid," is received in formalin and consists of one carrington soft tissue fragment that measures 0.4 cm in greatest dimension. The specimen is entirely submitted in cassette (D1). E. The specimen, labeled "BM, 5," and designated on the requisition "colon at 15 cm ," is received in formalin and consists of four carrington soft tissue fragments that measure 0.3 cm in greatest dimension. The specimen is entirely submitted in cassette (E1). F. The specimen, labeled "BM, 6," and designated on the requisition "rectum ," is received in formalin and consists of two carrington soft tissue fragments that measure 0.3 cm in greatest dimension. The specimen is entirely submitted in cassette (F1). AT (under the direct supervision of a pathologist) The Gross Description was prepared using a voice recognition system. The report was reviewed for accuracy; however, sound-alike word errors, addition and/or deletions may occur. If there is any question about this report, please contact Client Services. PERFORMING LABORATORY: The technical component was performed by [facility], [address] [place] [address] (Non Destructive Testing Scientist: Sunshine Kinsey MD; CLIA# [id number]). Professional interpretation was performed by [facility], [address] [place] [address] (Non Destructive Testing Scientist: Sunshine Kinsey MD; CLIA# [id number]). Diagnostician: Otoniel Martinez MD Pathologist Electronically Signed 07/12/2021 PATIENT NAME: ANTOINE LEA BOULDER PATHOLOGY DATE OF : [birth year] REPORT #: [id number] PHYSICIAN: BRYCE ROSA PCP: CONSTANCE ESTEBAN PA-C REPORT IS CONFIDENTIAL AND NOT TO BE RELEASED WITHOUT AUTHORIZATION [address] [place] [address] Signed Copies: ~ PATIENT NAME: ANTOINE LEA BOULDER PATHOLOGY DATE OF : [birth year] REPORT #: [id number] PHYSICIAN: BRYCE ROSA PCP: CONSTANCE ESTEBAN PA-C REPORT IS CONFIDENTIAL AND NOT TO BE RELEASED WITHOUT AUTHORIZATION
== END 2021-07-11 16:10 | disposition home or self-care (01) | DRG 392 ==
LOC: ED 22:16 → MS 22:18
PROVIDERS: Surgery; ADMIT Internal Medicine; ATTEND Internal Medicine
PROC: 0DBN8ZX Excision of Sigmoid Colon, Via Natural or Artificial Opening Endoscopic, Diagnostic (ICD-10-PCS; 2021-07-10)
PROC: 0DBP8ZX Excision of Rectum, Via Natural or Artificial Opening Endoscopic, Diagnostic (ICD-10-PCS; 2021-07-10)
PROC: 0DBB8ZX Excision of Ileum, Via Natural or Artificial Opening Endoscopic, Diagnostic (ICD-10-PCS; 2021-07-10)
PROC: 0DBL8ZX Excision of Transverse Colon, Via Natural or Artificial Opening Endoscopic, Diagnostic (ICD-10-PCS; 2021-07-10)
PROC: 0DBE8ZX Excision of Large Intestine, Via Natural or Artificial Opening Endoscopic, Diagnostic (ICD-10-PCS; 2021-07-10)
PROC: 0DBH8ZX Excision of Cecum, Via Natural or Artificial Opening Endoscopic, Diagnostic (ICD-10-PCS; principal; 2021-07-10 11:30)
DX: K58.1 Irritable bowel syndrome with constipation (principal); Z20.822 Contact with and (suspected) exposure to COVID-19; I48.0 Paroxysmal atrial fibrillation; I25.2 Old myocardial infarction; K21.9 Gastro-esophageal reflux disease without esophagitis; Z79.899 Other long term (current) drug therapy; Z91.041 Radiographic dye allergy status; Z79.52 Long term (current) use of systemic steroids
CPT/HCPCS: 36415; 74177; 80048; 80053; 83605; 85025; 85610; 93005; 93010; 96375; 96376; 99153; 99285-25; A9270; C9803; G0500; J0744; J0780; J1170; J1200; J2250; J2270; J2405; J2550; J3010; J7030; J7121; U0003

== ENCOUNTER 2021-12-22 17:27 | Emergency (ER) | payer OTHER, BC ==
[~2021-12-22] VITALS: Ht 167.6 cm; Wt 79.8 kg
[~2021-12-22 17:27] MED LIST changes: +CYCLOBENZAPRINE10 MG PO; +DICYCLOMINE HCL10 MG PO; +LOPERAMIDE2 MG PO; +MESALAMINE DR400 MG PO; +MIRALAX17 GM PO; +PANTOPRAZOLE SO20 MG PO
[2021-12-22] MEDS ORDERED: PERCOCET 5-3251 EACH PO (18:53)
== END 2021-12-22 19:34 | disposition home or self-care (01) ==
LOC: ED 17:27
DX: S43.402A Unspecified sprain of left shoulder joint, initial encounter (principal); Z91.09 Other allergy status, other than to drugs and biological substances; Z79.899 Other long term (current) drug therapy; X50.0XXA Overexertion from strenuous movement or load, initial encounter; Y99.0 Civilian activity done for income or pay
CPT/HCPCS: 73030; A9270; J2270

== ENCOUNTER 2022-05-16 08:53 | Inpatient (IN) | payer BC, OTHER ==
[~2022-05-16] VITALS: Ht 167.6 cm; Wt 81.0 kg
[~2022-05-16 08:53] MED LIST changes: +CIPRO500 MG PO; +METRONIDAZOLE500 MG PO; +PERCOCET 5-3251 EACH PO
--- OUTSIDE RECORDS SUMMARY | 2022-05-16 08:54 | XMS ---
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 EDb VISIT COUNT (12 MO.) [address] [place] [address] TOTAL 4 NOTE: Visits indicate total known visits. ED/UCC VISIT TRACKING (12 MO.) 05/16/2022 08:53 [facility] TYPE: Emergency COMPLAINT: - ABD PAIN 05/15/2022 20:06 [facility] TYPE: Emergency COMPLAINT: - BLOODY STOOL 12/22/2021 17:28 [facility] TYPE: Emergency COMPLAINT: - L SHOULD INJ DIAGNOSES: - Civilian activity done for income or pay - Other nursing home (current) drug therapy - Unspecified sprain of left shoulder joint, initial encounter - Pain in left shoulder - Other allergy status, other than to drugs and biological substances - Overexertion from strenuous movement or load, initial encounter 07/08/2021 22:17 [facility] TYPE: Emergency COMPLAINT: - BLOOD IN STOOL INPATIENT VISIT TRACKING (12 MO.) 07/09/2021 09:12 [facility] TYPE: Medical Surgical COMPLAINT: - COLITIS DIAGNOSES: - 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 - Paroxysmal atrial fibrillation - Contact with and (suspected) exposure to COVID-19 - Gastro-esophageal reflux disease without esophagitis - Paroxysmal atrial fibrillation - Old myocardial infarction - 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
--- NOTE | 2022-05-16 12:45 | NUR ---
PT BROUGHT TO THE FLOOR VIA STRETCHER. BEDSIDE REPORT RECIEVED IN THE ER WITH ANGELA GONZÁLES. IN ROOM 116. PT RATES PAIN 6/10, IN LEFT LOWER QUADRANT. IS AWARE OF THE PRN MEDICATION SCHEDULE. STATES LAST "NORMAL", FORMED BM WAS 1 WEEK AGO. YESTERDAY A "PEBBLE" SIZE BM AND ONLY BLOOD TODAY. DENIES FURTHER NEEDS AT THIS TIME. EDUCATED REGIONAL GEODETIC ADVISOR LIGHT USE, AND WITHIN REACH.
--- NOTE | 2022-05-16 13:00 | NUR ---
PT UP TO THE BATHROOM. MODERATE BLOOD IN THE HAT IT TOILET.
--- NOTE | 2022-05-16 13:21 | NUR ---
PT ADMINISTERED ENEMA, TOLERATED WELL. DENIES FURTHER NEEDS. CALL LIGHT WITHIN REACH
--- NOTE | 2022-05-16 14:13 | NUR ---
PT LAYING IN BED, AWAKE. PRN PAIN MEDICATION ADMINISTERED. DENIES FURTHER NEEDS.
--- NOTE | 2022-05-16 15:15 | NUR ---
PT BEGAN TO VOMIT, SPOKE WITH MD TEMPLE WAS DISCONTIUNED. WILL PUT IN ORDER.
--- NOTE | 2022-05-16 16:16 | NUR ---
GOT A PATIENT A FAN. HE SAID THANK YOU.
--- NOTE | 2022-05-16 17:39 | NUR ---
PT RESTING IN BED, AWAKE. DENIES FURTHER NEEDS. CALL LIGHT WITHIN REACH.
--- NOTE | 2022-05-16 19:05 | NUR ---
REPORT RECEIVED FROM ANGELA COLLIER. PT SITTING UP IN BED. PT REPORTING PAIN 8/10. AND REQUESTING A MONA. WILL RETURN TO PROVIDE MONA AND PRN PAIN MEDICATION. PT REPORTS NO OTHER NEEDS AT THIS TIME. CALL LIGHT IN REACH.
--- NOTE | 2022-05-16 19:38 | NUR ---
IN TO ADMINISTER PRN PAIN MEDICATION, SEE MAR. PT REPORTING PAIN 8/10 IN LLQ. IV INFUSING WNL. MONA PROVIDED. PT REPORTS NO OTHER NEEDS AT THIS TIME. CALL LIGHT IN REACH.
--- NOTE | 2022-05-16 20:59 | NUR ---
IN TO ADMINISTER MEDICATIONS, SEE MAR. PT REPORTING PAIN 8/10 IN LLQ PRN PAIN MEDICATION ADMINISTERED, SEE MAR. VITALS AND I&Os COMPLETE. ASSESSMENT COMPLETE LUNG SOUNDS CLEAR. BOWEL TONES ACTIVE. ABD TENDER WITH PALPATION. PT DENIES NAUSEA. PT REQUESTING TOBY LUIS PROVIDED. PT REPORTS NO OTHER NEEDS AT THIS TIME. CALL LIGHT IN REACH. IV INFUSING WNL.
--- NOTE | 2022-05-16 21:17 | NUR ---
INFORMED PT THAT THE JELLO ON THE FLOOR ALL HAVE RED DYE IN THEM, OFFERED PT APPLE SAUCE, APPLE SAUCE PROVIDED RATHER THAN JELLO. PT REPORTING PAIN 8/10 IN LLQ. PRN PAIN MEDICATION ADMINISTERED, SEE MAR. PT REQUESTING APPLE SAUCE, APPLE SAUCE PROVIDED. PT REPORTS NO OTHER NEEDS AT THIS TIME. CALL LIGHT IN REACH.
--- NOTE | 2022-05-16 22:25 | NUR ---
IN TO ADMINISTER MEDICATION. IV INFUSING WNL. PT REPORTING PAIN 8/10 IN LLQ. PRN PAIN MEDICATION ADMINISTERED. PT REQUESTING APPLE ENSURE, NO APPLE ENSURE. OFFERED PT APPLE JUICE. PT ACCEPTS APPLE JUICE. APPLE JUICE PROVIDED. URINAL EMPTIED. PT REPORTS NO OTHER NEEDS AT THIS TIME. CALL LIGHT IN REACH. INSTRUCTED PT TO CALL WHEN IV PUMP ALARMS. PT VERBALIZES UNDERSTANDING.
--- NOTE | 2022-05-16 23:02 | NUR ---
IN IV PUMP ALARMING, RESOLVED. IV INFUSING WNL. PT REPORTS NO OTHER NEEDS AT THIS TIME. CALL LIGHT IN REACH.
--- NOTE | 2022-05-16 23:29 | NUR ---
IN TO ROUND ON PT. PT REPORTING PAIN 8/10 IN LLQ. PRN PAIN MEDICATION ADMINISTERED. PT REQUESTING NEW HEAT PACK. HEAT PACK PROVIDED. PT REPORTS NO OTHER NEEDS AT THIS TIME. CALL LIGHT IN REACH.
--- NOTE | 2022-05-17 00:58 | NUR ---
IN TO ROUND ON PT. PT SITTING UP IN BED. PT REPORTSING PAIN 10/13. PT REQUESTING PRN PAIN MEDICATION, PRN PAIN MEDICATION ADMINISTERED, SEE MAR. IV INFUSING WNL. VITALS AND I&Os COMPLETE. PT REPORTS NO OTHER NEEDS AT THIS TIME. CALL LIGHT IN REACH.
--- NOTE | 2022-05-17 02:04 | NUR ---
IN TO ROUND ON PT. PT REPORTING PAIN 6/10 IN LLQ. PRN PAIN MEDICATION ADMINISTERED, SEE MAR. PT REQUESTING ENSURE AND HOT PACK. ENSURE AND HOT PACK PROVIDED. ASSESSMENT COMPLETE. LUNG SOUNDS CLEAR. BOWEL TONES ACTIVE. ABD TENDER WITH PALPATION ON LLQ. URINAL EMPTIED. PT REPORTS NO OTHER NEEDS AT THIS TIME. CALL LIGHT IN REACH. IV INFUSING WNL.
--- NOTE | 2022-05-17 03:09 | NUR ---
IN TO ROUND ON PT. PT REPORTING PAIN 5/10 IN LLQ. PT REQUESTING PRN OXYCODONE ONCE AVAILABLE. PT REPORTS NO OTHER NEEDS AT THIS TIME. CALL LIGHT IN REACH.
--- NOTE | 2022-05-17 03:29 | NUR ---
PRN OXYCODONE ADMINISTERED, SEE MAR. PT TAKES PO MEDICAION WITH NO ISSUES. PT REQUESTING ENSURE AND HOT PACK, ENSURE AND HOT PACK PROVIDED. PT REPORTS NO OTHER NEEDS AT THIS TIME. CALL LIGHT IN REACH.
--- NOTE | 2022-05-17 04:05 | NUR ---
IN TO ANSWER CALL LIGHT. IV PUMP ALARMING, RESOLVED. NEW BAG OF FLUIDS STARTED, SEE MAR. IV INFUSING WNL. PT REPORTS NO OTHER NEEDS AT THIS TIME. CALL LIGHT IN REACH.
--- NOTE | 2022-05-17 05:34 | NUR ---
PRN PAIN MEDICATION ADMINISTERED, SEE JUL. PT REPORTING PAIN 5/10 IN LLQ. PT REPORTS NO OTHER NEEDS AT THIS TIME. CALL LIGHT IN REACH.
--- NOTE | 2022-05-17 06:09 | NUR ---
IN TO ADMINISTER MEDICATION, SEE MAR. PT TAKES PO MEDICATION WITH NO ISSUES. PT REPORTING PAIN 5/10 IN LLQ, OFFERED PT PRN MIGUELYL. PT ACCEPTS.
--- NOTE | 2022-05-17 06:17 | NUR ---
PT REPORTING PAIN 5/10 IN LLQ. PRN BENTYL ADMINISTERD, SEE MAR. IV ABX COMPLETE. PT PLACED BACK ON CONTINUOUS FLUIDS. IV INFUSING WNL. PT REPORTS NO OTHER NEEDS AT THIS TIME. CALL LIGHT IN REACH.
--- NOTE | 2022-05-17 07:07 | NUR ---
IN TO ANSWER CALL LIGHT. PT REPORTING PAIN 7/10 IN LLQ. PRN PAIN MEDICATION ADMINISTERED, SEE MAR. PT REQUESTING HOT PACK, HOT PACK PROVIDED. PT DENIES ANY OTHER NEEDS AT THIS TIME. CALL LIGHT IN REACH.
--- NOTE | 2022-05-17 07:19 | NUR ---
REPORT RECEIVED FROM MARIE MILLER, ALL QUESTIONS ANSWERED. PT SITTING UP AWAKE IN BED. STATES HE IS COMFORTABLE AT THIS TIME. CALL LIGHT IN REACH.
--- NOTE | 2022-05-17 09:15 | NUR ---
MORNING ASSESSMENT COMPELTE. PT SITITNG UP IN BED, STATES PAIN IS 6/10 IN LLQ, GIVEN PRN PAIN MEDICATION SEE EMAR. BOWEL TONES ACTIVE. PT DENIES FURTHER NEEDS AT THIS TIME. CALL LIGHT IN REACH.
[2022-05-17] MEDS ORDERED: ONDANSETRON HCL4 MG PO (10:57)
--- NOTE | 2022-05-17 11:18 | NUR ---
PT C/0 11/12 LLQ ABD PAIN AND NAUSEA. GIVEN PRN FENTANYL AND ZOFRAN. PT DENIES FURTHER NEEDS AT THIS TIME. CALL LIGHT IN REACH.
--- NOTE | 2022-05-17 12:13 | NUR ---
PT C/O 11/12 PAIN, GIVEN PRN FENTANYL, SEE EMAR. PT STATES INCREASED PAIN OCCURED AFTER PT ATTEMPTED TO HAVE BM. BM CONSISTED OF SCANT AMOUNT OF PINK TINGED MUCUS. PROVIDED WARM BLANKET FOR COMFORT. PT DENIES FURTHER NEEDS AT THIS TIME. CALL LIGHT IN REACH.
[2022-05-17] MEDS ORDERED: CYCLOBENZAPRINE10 MG PO (12:24)
[2022-05-17] MEDS ORDERED: DICYCLOMINE HCL10 MG PO (12:25)
--- NOTE | 2022-05-17 12:26 | NUR ---
MED REC COMPLETE
--- NOTE | 2022-05-17 12:35 | NUR ---
SPOKE WITH PATIENT IN ROOM. PATIENT STATES HE LIVES WITH AND KIDS. 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 HE PLANS TO RETURN HOME FOR DISCHARGE AND KNOWS OF NO BARRIERS. IS NOT WORRIED FINANCIALLY FOR FOOD OR UTILITIES. HAS LOCAL PCP AND PHARMACY. WILL COME TO DRIVE HIM HOME AT DISCHARGE. NO BARRIERS FOR PATIENT FOR PLANNED DISCHARGE HOME. HE WILL LET STAFF KNOW IF HE HAS ANY CONCERNS COME UP.
--- NOTE | 2022-05-17 14:24 | NUR ---
PT ALERT, ORIENTED AND LAYING IN DARKENED RM. HAD GOOD VISIT WITH PT, HE SAID THAT HE KNOWS THE WARNING SIGNS AND NEEDS TO DO A BETTER JOB OF COMING IN FOR HELP SOONER. PT REQUESTED PRAYER,SHOWED MUSIC CHANNELS AND GAVE BLESING. WILL FOLLOW NEEDED
--- NOTE | 2022-05-17 15:47 | NUR ---
PT C/O 10/13 LLQ ABD PAIN, GIVEN PRN PAIN MEDICATION, SEE EMAR. PT DENIES FURTHER NEEDS AT THIS TIME. CALL LIGHT IN REACH.
--- NOTE | 2022-05-17 17:57 | NUR ---
Patient and concerned he is not yet improving. Informed plan at this time is to continues IV fluids, IV antibiotics and pain control. Patient concerned he has not had a colonoscopy. Concerns noted and passed along to Dr. Crow. Patient and also encouraged to establish care with GI specialist to decide on treatment plan to prevent hospitalizations and further studies if needed. Both verbalize understanding.
--- NOTE | 2022-05-17 19:00 | NUR ---
REPORT RECEIVED FROM ANGELA PELAEZ. PT SITTING UP IN BED. PT REPORTING PAIN 5/10. PT DENIES ANY NEEDS AT THIS TIME. CALL LIGHT IN REACH.
--- NOTE | 2022-05-17 19:15 | NUR ---
IN TO WRAP IV SITE SO PT MAY SHOWER THIS EVENING, PT UP TO THE SHOWER, PULL CORD IN REACH
--- NOTE | 2022-05-17 19:23 | NUR ---
IN ROOM PT IS REQUESTING TO TAKE A SHOWER. PT UNHOOKED FROM IV. ALDO CNA IN ROOM TO ASSIST PT WITH SHOWER SET UP. NO OTHER NEEDS FROM THIS RN AT THIS TIME.
--- NOTE | 2022-05-17 19:56 | NUR ---
IN ROOM TO ROUND ON PT. PT FINISHED SHOWERING. HOOKED PT BACK UP TO FLUIDS. IV INFUSING WNL. PT REPORTING PAIN 10/13. PRN PAIN MEDICATION ADMINISTERED, SEE JUL. PT REQUESTING A NEW IV IV IN LEFT AC IS "UNCOMFORTABLE." WILL ATTEMPT NEW IV LATER THIS EVENING. PT REQUESTING HOT PACK. HOT PACK PROVIDED. PT REPORTS NO OTHER NEEDS AT THIS TIME. CALL LIGHT IN REACH.
--- NOTE | 2022-05-17 21:27 | NUR ---
ASSESSMENT COMPLETE. LUNG SOUNDS CLEAR. BOWEL TONES ACTIVE. ABD TENDER IN LLQ WITH PALPATION. PT REPORTING PAIN 5/10 IN LLQ. PT REPORTING NAUSEA. PRN NAUSEA MEDICATION ADMINISTERED, SEE MAR. IV INFUSING WNL.
--- NOTE | 2022-05-17 21:30 | NUR ---
PRN TRAZODONE ADMINISTERED PER PT REQUEST, SEE JUL.
--- NOTE | 2022-05-17 21:58 | NUR ---
PT REPORTING PAIN 5/10 AND REQUESTING PRN PAIN MEDICATION. PRN PAIN MEDICATION ADMINISTERED, SEE MAR. IV ABX STARTED, SEE JUL. THIS RN ATTEMPTED 2 IV STARTS AND WAS UNSUCCESSFUL. ANGELA PICKARD IN ROOM TO ATTEMPT IV START. NO OTHER NEEDS FROM THIS RN AT THIS TIME.
--- NOTE | 2022-05-17 22:00 | NUR ---
ATTEMPTED IV X2 WITHOUT SUCCESS. PT TOLERATED WELL.
--- NOTE | 2022-05-17 23:02 | NUR ---
IN TO ADMINISTER PRN PAIN MEDICATION, SEE MAR. PT REPORTING PAIN 6/10 IN LLQ. PT REPORTING NAUSEA. PRN NAUSEA MEDICATION ADMINISTERED, SEE ADRIÁN. JUSTIN, RN IN ROOM TO ATTEMPT IV. NO OTHER NEEDS FROM THIS RN AT THIS TIME. CALL LIGHT IN REACH.
--- NOTE | 2022-05-18 00:22 | NUR ---
IN TO ROUND ON PT. PT REPORTING PAIN 08/13. PRN PAIN MEDICATION ADMINISTERED, SEE MAR. PT REPORTS FEELING NAUSEOUS. PT REQUESTING SPRITE, SPRITE PROVIDED. PT REPORTS NO OTHER NEEDS AT THIS TIME. CALL LIGHT IN REACH.
--- NOTE | 2022-05-18 01:10 | NUR ---
IN TO ROUND ON PT. PT LAYING IN BED AND WAVES WHEN DOOR IS OPEN. PT REPORTING PAIN 08/13. PT DENIES PRN PAIN MEDICATION AND STATES HE WILL "GIVE IT A LITTLE BIT." PT REPORTS NO OTHER NEEDS AT THIS TIME. CALL LIGHT IN REACH.
--- NOTE | 2022-05-18 02:09 | NUR ---
IN TO ANSWER CALL LIGHT. IV PUMP ALARMING. NEW BAG OF FLUIDS STARTED, SEE MAR. PT REPORTING PAIN 6/10 IN LLQ. PRN PAIN MEDICATION ADMINISTERED. ASSESSMENT COMPLETE. LUNG SOUNDS CLEAR. BOWEL TONES ACTIVE. PT REPORTS TENDERNESS IN LLQ WITH PALPATION. URINAL EMPTIED. I&Os COMPLETE. PT REPORTS NO OTHER NEEDS AT THIS TIME. CALL LIGHT IN REACH.
--- NOTE | 2022-05-18 03:15 | NUR ---
IN TO ROUND ON PT. PT RESTING IN BED AND AWAKENS WHEN DOOR IS OPEN. PT CLOSES EYES AND THEN OPENS AGAIN AND RESPONDS WHEN ADDRESSED. PT REPORTING PAIN /. PT CLOSES EYES AND RESTS IN BED. RR EVEN AND UNLABORED. NO OTHER NEEDS IDENTIFIED AT THIS TIME. CALL LIGHT IN REACH.
--- NOTE | 2022-05-18 05:39 | NUR ---
IN TO ADMINISTER MEDICATION, SEE JUL. IV ABX STARTED. IV INFUSING WNL. PT REPORTING PAIN 10/13, PRN PAIN MEDICATION ADMINISTERED, SEE JUL. PAIN IN LLQ SHARP, BURNING PAIN. VITALS AND I&Os COMPLETE. PT REQUESTING WARM BLANKETS, WARM BLANKETS PROVIDED. PT REPORTS NO OTHER NEEDS AT THIS TIME. CALL LIGHT IN REACH. PT RESTING IN BED WITH EYES CLOSED. RR EVEN AND UNLABORED.
--- NOTE | 2022-05-18 07:07 | NUR ---
REPORT RECEIVED FROM BAILEY MILLER, ALL QUESTIONS ANSWERED. PT RESTING IN BED WITH EYES CLOSED, RESPIRATIONS EVEN AND UNLABORED. CALL LIGHT IN REACH.
--- NOTE | 2022-05-18 09:40 | NUR ---
MORNING ASSESSMENT COMPLETE. PT C/O 11/12 PAIN LLQ, GIVEN PRN OXYCODONE. PT UP TO RESTROOM AND BACK TO BED. ACTIVE BOWEL TONES. PT DENIES NAUSEA. DENIES FURTHER NEEDS AT THIS TIME. CALL LIGHT IN REACH.
--- NOTE | 2022-05-18 11:13 | NUR ---
PT ALERT, ORIENTED AND REPORTED PAIN IN ABDOMEN @ 5-6. OPENED DIALOGUE REGARDING FRUSTRATION HE IS HAVING WITH HIS BODY NOT COOPERATING AND THE DIFFICULTY HE PERCEIVES IT CAUSES WITH HIS FAMILY. EXPRESSED SOME HARDSHIPS A RESULT. PT OPEN REGARDING DECISIONS HE NEEDS TO MAKE. REQUESTED PRAYER FOR WISDOM, GAVE ENCOURAGEMENT AND SUPPORT. WILL FOLLOW
--- NOTE | 2022-05-18 13:04 | NUR ---
pt c/o nausea and 11/12 llq abd pain. pt given prn zofran and fentanyl, see emar. denies further needs at this time. call light in reach.
--- NOTE | 2022-05-18 14:35 | NUR ---
AFTERNOON ASSESSMENT COMPLETE, NO CHANGES FROM MORNING ASSESSMENT. PT C/O LLQ ABD PAIN, GIVEN PRN OXYCODONE. DENIES FURTHER NEEDS AT THIS TIME. CALL LIGHT IN REACH.
--- NOTE | 2022-05-18 19:56 | NUR ---
REC'D BEDSIDE REPORT FROM DAY NURSE. PT AOX4, NAD, NO C/O. WILL CONTINUE TO MONITOR AND FOLLOW POC.
--- NOTE | 2022-05-19 05:02 | NUR ---
PT IN BED. VITALS AND IS AND OS COMPLETE. PT REFUSED GETTING UP TO CHAIR. PT DECLINED FRESH ICE WATER. PT DECLINED RESTROOM NEEDS. NO FURTHER NEEDS. CALL LIGHT WITHIN REACH.
--- NOTE | 2022-05-19 06:30 | NUR ---
PT UP TO THE TOILET, CHILLED, TEMP TURNED UP, COFFEE AND ICE WATER PROVIDED
--- NOTE | 2022-05-19 07:00 | NUR ---
PT UP TO VOID, LINENS CHANGED D/T PT SWEATING, NO FURTHER NEEDS AT THIS TIME
--- NOTE | 2022-05-19 07:16 | NUR ---
PT WITH NO ACUTE OVERNIGHT EVENTS. PAIN WELL-CONTROLLED WITH CURRENT PAIN REGIMEN. PT TOLERATED 6 SALTINE CRACKERS THIS SHIFT. VSS, NO C/O. BEDSIDE HANDOFF REPORT GIVEN TO DAY NURSE.
--- NOTE | 2022-05-19 07:26 | NUR ---
REPORT RECEIVED FROM JUSTIN MILLER, ALL QUESTIONS ANSWERED. PT RESTING IN BED WITH EYES CLOSED, RESPIRATIONS EVEN AND UNLABORED. CALL LIGHT IN REACH.
--- NOTE | 2022-05-19 09:33 | NUR ---
PT IN BED. VITALS AND IS AND OS COMPLETE. PT PROVIDED URINAL. PT PROVIDED WARM WASH CLOTH. PT DECLINED ORAL CARE AT THIS TIME AND STATED HE WOULD PERFORM IT WHEN READY. NO FURTHER NEEDS. CALL LIGHT WITHIN REACH
--- NOTE | 2022-05-19 10:52 | NUR ---
PT GIVEN WARM PACK AND BLINDS OPENED
--- NOTE | 2022-05-19 12:36 | NUR ---
PT SITTING UP IN BED, STATES PAIN IS TOLERABLE AT THIS TIME. DENIES NEEDS AT THIS TIME. CALL LIGHT IN REACH
--- NOTE | 2022-05-19 13:26 | NUR ---
PT IN BED. VITALS AND IS AND OS COMPLETE. TRAY CLEARED. NO NEEDS AT THIS TIME. CALL LIGHT WITHIN REACH
--- NOTE | 2022-05-19 19:39 | NUR ---
REPORT RECEIVED FROM DAY SHIFT RN. PT LYING IN BED ALERT AND ORIENTED. DENIES NEEDS. WHITE BOARD UPDATED. CALL LIGHT IN REACH.
--- NOTE | 2022-05-19 21:30 | NUR ---
PT UP TO SHOWER INDEPENDENTLY. LINENS CHANGED. CLEAN GOWN AND SOCKS PROVIDED. EVENING ASSESSMENT COMPLETE. SCHEDULED MEDS ADMIN PER EMAR. PT REPORTS LLQ PAIN. PRN FOR PAIN AND SLEEP ADMIN PER EMAR. PT HAD TWO SMALL SOFT BM. NO BLOOD NOTED IN STOOL. PT REPORTS SMEAR OF BLOOD ON PAPER. PT DENIES NAUSEA. SANDWICH BOX PROVIDED. NO QUESTIONS OR CONCERNS AT THIS TIME. CALL LIGHT IN REACH.
--- NOTE | 2022-05-20 00:46 | NUR ---
PT RESTING IN BED WITH EYES CLOSED. RESPIRATIONS EVEN. CALL LIGHT IN REACH.
--- NOTE | 2022-05-20 06:10 | NUR ---
PT RESTING WITH EYES CLOSED. AWAKENS EASILY. VS AND I&O OBTAINED. PT REPORTS ABD PAIN TOLERABLE. DENIES NAUSEA. NO FURTHER NEEDS AT THIS TIME. CALL LIGHT IN REACH.
--- NOTE | 2022-05-20 07:15 | NUR ---
report from sue atkinson, eyes closed resting, call light in reach.
--- NOTE | 2022-05-20 09:37 | NUR ---
WARMED PT REG DIET FOR BREAKFAST - PT AWAKENED FOR MEAL AND ASSESSMENT, REPORTS FEELING BETTER - PRINTED EDUCATION ON IBS REVIEWED WITH PT - WHO SEES CONSTANCE ESTEBAN AND HAS DX OF IBS - PT WOULD LIKE TO GO HOME TODAY. TAKES MIRILAX TODAY WITH AJ. SALAZAR PO GIVEN WITH MEAL.
== END 2022-05-20 12:30 | disposition home or self-care (01) | DRG 392 ==
LOC: ED 08:53 → MS 11:49
PROVIDERS: ADMIT Internal Medicine; ATTEND Internal Medicine
DX: K52.89 Other specified noninfective gastroenteritis and colitis (principal); K62.5 Hemorrhage of anus and rectum; Z20.822 Contact with and (suspected) exposure to COVID-19; K59.03 Drug induced constipation; T40.2X5A Adverse effect of other opioids, initial encounter; I48.91 Unspecified atrial fibrillation; Z90.49 Acquired absence of other specified parts of digestive tract; Z98.890 Other specified postprocedural states; Z88.8 Allergy status to other drugs, medicaments and biological substances; Z79.899 Other long term (current) drug therapy
CPT/HCPCS: 36415; 80048; 80053; 83690; 83735; 85025; 85651; 86140; J0744; J1170; J1885; J2405; J2550; J3010; J3480; J7121; U0003

== ENCOUNTER 2022-06-14 18:10 | Emergency (ER) | payer BC, OTHER ==
[~2022-06-14] VITALS: Ht 167.6 cm; Wt 81.2 kg
[~2022-06-14 18:10] MED LIST changes: +ONDANSETRON HCL4 MG PO
--- OUTSIDE RECORDS SUMMARY | 2022-06-14 18:12 | XMS ---
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 EDb VISIT COUNT (12 MO.) [address] [place] [address] TOTAL 5 NOTE: Visits indicate total known visits. ED/UCC VISIT TRACKING (12 MO.) 06/14/2022 18:10 [facility] TYPE: Emergency COMPLAINT: - NECK PAIN 05/16/2022 08:53 [facility] TYPE: Emergency COMPLAINT: - ABD PAIN 05/15/2022 20:06 [facility] TYPE: Emergency COMPLAINT: - BLOODY STOOL DIAGNOSES: - Other snf (current) drug therapy - Food additives allergy status - Melena - Unspecified atrial fibrillation - Noninfective gastroenteritis and colitis, unspecified 12/22/2021 17:28 [facility] TYPE: Emergency COMPLAINT: - L SHOULD INJ DIAGNOSES: - Overexertion from strenuous movement or load, initial encounter - Civilian activity done for income or pay - Other snf (current) drug therapy - Unspecified sprain of left shoulder joint, initial encounter - Pain in left shoulder - Other allergy status, other than to drugs and biological substances 07/08/2021 22:17 [facility] TYPE: Emergency COMPLAINT: - BLOOD IN STOOL INPATIENT VISIT TRACKING (12 MO.) 05/16/2022 11:49 [facility] TYPE: Medical Surgical COMPLAINT: - ACUTE COLITIS DIAGNOSES: - Contact with and (suspected) exposure to COVID-19 - Hemorrhage of anus and rectum - Noninfective gastroenteritis and colitis, unspecified - Allergy status to other drugs, medicaments and biological substances - Other specified postprocedural states - Drug induced constipation - Other director long term care (current) drug therapy - Acquired absence of other specified parts of digestive tract - Other specified noninfective gastroenteritis and colitis - Unspecified atrial fibrillation - Adverse effect of other opioids, initial encounter 07/09/2021 09:12 [facility] TYPE: Medical Surgical COMPLAINT: - COLITIS DIAGNOSES: - Irritable bowel syndrome with constipation - Gastro-esophageal reflux disease without esophagitis - Irritable bowel syndrome with constipation - Other snf (current) drug therapy - Radiographic dye allergy status - 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
[2022-06-14] MEDS ORDERED: AMOX TR-K CLV1 EAC1 PO (20:55)
== END 2022-06-14 21:13 | disposition home or self-care (01) ==
LOC: ED 18:10
DX: J01.90 Acute sinusitis, unspecified (principal); I48.91 Unspecified atrial fibrillation; Z91.02 Food additives allergy status; Z79.899 Other long term (current) drug therapy; Z20.822 Contact with and (suspected) exposure to COVID-19
CPT/HCPCS: 36415; 70450; 80053; 85025; 87502; 96374; 96375; 99284-25; C9803; J1200; J1885; J2765; J7030; U0003

== ENCOUNTER 2023-05-06 16:10 | Emergency (ER) | payer BC, OTHER ==
[~2023-05-06] VITALS: Ht 167.6 cm; Wt 73.9 kg
[~2023-05-06 16:10] MED LIST changes: +AMOX TR-K CLV1 EAC1 PO
[2023-05-06 16:32] LABS: BASOPHILS 0.2 % (0-2); EOSINOPHILS 1.1 % (0-6); HEMATOCRIT 43.9 % (35.0-50.0); HEMOGLOBIN 14.6 g/dL (12.0-18.0); LYMPHOCYTES 23.6 % (24-44); MCH 28.6 (27-36); MCHC 33.2 g/dl (30-36); MCV 86.4 fl (81-99); NEUTROPHILS 68.1 % (39-80); PLATELET COUNT 308 K/uL (140-440); RBC 5.08 M/ul (4.3-5.7); RDW 13.9 (10.5-15.0)
[2023-05-06] MEDS ORDERED: ACETAMINOPHEN500 MG PO (16:35)
[2023-05-06 16:52] LABS: ALBUMIN 4.5 g/dL (3.4-5.0); ALBUMIN/GLOBULIN RATIO 1.22 (1.1-2.4); ALKALINE PHOSPHATASE 76 U/L (46-116); ALT (SGPT) 81 U/L (14-59); AST (SGOT) 38 U/L (15-37); BILIRUBIN, TOTAL 1.2 ng/dL (0.2-1.0); CARBON DIOXIDE 31 mmol/L (21-32); CHLORIDE 101 mmol/L (98-107); GLOMERULAR FILTRATION RATE,EST 105 mL/min (>60); MAGNESIUM 1.9 mg/dL (1.8-2.4); PROTEIN, TOTAL 8.2 g/dL (6.4-8.2); UREA NITROGEN 12 mg/dL (7-18)
[2023-05-06] MEDS ORDERED: PROTONIX40 MG PO (19:17)
[2023-05-06 20:04] VITALS: BP 133/85
--- NOTE | 2023-05-06 23:48 | EKG ---
[facility] [address] [facility] [place] [address] Signed Normal sinus rhythm Nonspecific T wave abnormality Abnormal ECG When compared with ECG of 09-APR-2023 18:47, Questionable change in QRS axis Nonspecific T wave abnormality now evident in Inferior leads Nonspecific T wave abnormality now evident in Lateral leads Confirmed by Rebecca Kaplan MD () on 05/06/2023 11:48:17 PM Electronically Signed By: REBECCA KAPLAN MD 05/06/23 2348 PATIENT NAME: ANTOINE LEA ITHACA Electrocardiogram DATE OF : [birth year] PHYSICIAN: REBECCA KAPLAN MD REPORT #: [id number] REPORT IS CONFIDENTIAL AND NOT TO BE RELEASED WITHOUT AUTHORIZATION
== END 2023-05-06 20:00 | disposition home or self-care (01) ==
LOC: ED 16:10
PROVIDERS: Emergency Medicine
DX: R07.89 Other chest pain (principal); K21.9 Gastro-esophageal reflux disease without esophagitis; Z91.09 Other allergy status, other than to drugs and biological substances; Z79.899 Other long term (current) drug therapy
CPT/HCPCS: 36415; 71045; 80053; 83735; 84484; 85025; 93005; 93010; 96374; 96375; 96376; 99285-25; C9113; J2405

== ENCOUNTER 2023-11-21 03:09 | Emergency (ER) | payer BC, OTHER ==
[~2023-11-21] VITALS: Ht 167.6 cm; Wt 76.8 kg
[~2023-11-21 03:09] MED LIST changes: +ACETAMINOPHEN500 MG PO; +PROTONIX40 MG PO
[2023-11-21] MEDS ORDERED: SUCRALFATE1 GM PO (03:19)
[2023-11-21] MEDS ORDERED: VITAMIN D21250 MCG PO (03:19)
[2023-11-21] MEDS ORDERED: AMOXICILLIN500 MG PO (03:19)
[2023-11-21 03:23] LABS: BASOPHILS 0.5 % (0-2); EOSINOPHILS 2.4 % (0-6); HEMATOCRIT 40.5 % (35.0-50.0); HEMOGLOBIN 13.8 g/dL (12.0-18.0); LYMPHOCYTES 27.2 % (24-44); MCH 28.8 (27-36); MCHC 34.1 g/dl (30-36); MCV 84.5 fl (81-99); MONOCYTES 6.4 % (0-12); NEUTROPHILS 63.5 % (39-80); PLATELET COUNT 333 K/uL (140-440); RDW 14.3 (10.5-15.0)
[2023-11-21] MEDS ORDERED: FAMOTIDINE 20 MG/ 2 ML VIAL IV ONE (03:30)
[2023-11-21] MEDS ORDERED: fentaNYL citrate 100 MCG/2 ML VIAL IV ONE (03:30)
[2023-11-21 03:56] LABS: ALBUMIN 4.3 g/dL (3.4-5.0); ALBUMIN/GLOBULIN RATIO 1.3 (1.1-2.4); ANION GAP 14.6 (7-21); BILIRUBIN, TOTAL 0.9 ng/dL (0.2-1.0); BUN/CREATININE RATIO 12.93 (6.0-28.6); CALCIUM 8.9 mg/dL (8.5-10.1); CREATININE, SERUM 1.16 mg/dL (0.70-1.30); POTASSIUM 3.6 mmol/L (3.5-5.1); PROTEIN, TOTAL 7.6 g/dL (6.4-8.2)
[2023-11-21 04:01] LABS: MAGNESIUM 2.1 mg/dL (1.8-2.4)
[2023-11-21] MEDS ORDERED: hydroCHLOROthiazide 25 MG TAB PO ONE (04:15)
[2023-11-21] MEDS ORDERED: HEPARIN SOD,PORK IN 0.45% NACL 500 ML IV SCH (05:00)
[2023-11-21] MEDS ORDERED: NITROGLYCERIN 0.4 MG SUBL SL PRN (05:00)
[2023-11-21] MEDS ORDERED: NITROGLYCERIN 50MG/D5W 250 ML IV SCH (05:00)
[2023-11-21] MEDS ORDERED: HEParin SOD (PORCINE) 5,000 UNIT/ML VIAL IV ONE ×2 (05:00→05:31)
[2023-11-21] MEDS ORDERED: LIDOCAINE & ANTACID 35 ML BTL PO ONE (05:00)
[2023-11-21 05:14] LABS: PARTIAL THROMBOPLASTIN TIME 26.7 Sec (22.9-41.3); PROTIME 12.5 Sec (11.2-14.2)
[2023-11-21 05:20] LABS: BILIRUBIN, URINE NEGATIVE (negative); BLOOD/HGB, URINE TRACE-I (Negative); KETONE, URINE NEGATIVE (Negative); LEUK ESTERASE, URINE NEGATIVE (negative); NITRITE, URINE NEGATIVE (negative); PH, URINE 6.5 (5-7)
[2023-11-21 05:25] LABS: BACTERIA, URINE RARE /hpf (negative); CASTS, URINE NONE SEEN \\lpf; COLLECTION TYPE, URINE CLEAN CATCH; CRYSTALS, URINE NONE SEEN (0-1+); EPITHELIAL CELLS, URINE SQUAMOUS 1+ /lpf (0-1+); REFLEX CULTURE, URINE No (No)
[2023-11-21 05:44] VITALS: BP 161/104
[2023-11-21] MEDS ORDERED: HEParin SOD (PORCINE) 5,000 UNIT/ML SYR IV ONE (05:45)
--- NOTE | 2023-11-21 15:11 | EKG ---
[facility] [address] [facility] [place], [place] [address] Signed Normal sinus rhythm Minimal voltage criteria for LVH, may be normal variant ( Sokolow-Boyce ) Nonspecific T wave abnormality Abnormal ECG No previous ECGs available Confirmed by Jackie Cramer ([id number]) on 11/21/2023 3:11:43 PM Electronically Signed By: JACKIE CRAMER MD 11/21/23 1511 PATIENT NAME: ANTOINE LEA [place]IL[place] Electrocardiogram DATE OF : [birth year] PHYSICIAN: JACKIE CRAMER MD REPORT #: [id number] REPORT IS CONFIDENTIAL AND NOT TO BE RELEASED WITHOUT AUTHORIZATION
--- NOTE | 2023-11-21 15:12 | EKG ---
[facility] [address] [facility] [place] [address] Signed Normal sinus rhythm Nonspecific ST and T wave abnormality Abnormal ECG When compared with ECG of 06-MAY-2023 16:19, ST elevation now present in Anterior leads V2, V3 Confirmed by Jackie Cramer ([id number]) on 11/21/2023 3:12:37 PM Electronically Signed By: JACKIE CRAMER MD 11/21/23 1512 PATIENT NAME: ANTOINE LEA [place] Electrocardiogram DATE OF : [birth year] PHYSICIAN: JACKIE CRAMER MD REPORT #: [id number] REPORT IS CONFIDENTIAL AND NOT TO BE RELEASED WITHOUT AUTHORIZATION
== END 2023-11-21 05:44 | disposition short-term general hospital (02) ==
LOC: ED 03:09
PROVIDERS: Internal Medicine
DX: I21.3 ST elevation (STEMI) myocardial infarction of unspecified site (principal); K21.9 Gastro-esophageal reflux disease without esophagitis; Z79.899 Other long term (current) drug therapy; Z91.048 Other nonmedicinal substance allergy status
CPT/HCPCS: 36415; 71045; 80053; 81001; 83690; 83735; 84484; 85025; 85379; 85610; 85730; 93005; 93010; J1644; J3010

== ENCOUNTER 2024-01-30 10:32 | Emergency (ER) | payer OTHER, BC ==
[~2024-01-30] VITALS: Ht 167.6 cm; Wt 72.3 kg
[~2024-01-30 10:32] MED LIST changes: +SUCRALFATE1 GM PO; +VITAMIN D21250 MCG PO
[2024-01-30 11:46] VITALS: BP 125/86
== END 2024-01-30 11:45 | disposition home or self-care (01) ==
LOC: ED 10:32
DX: S49.92XA Unspecified injury of left shoulder and upper arm, initial encounter (principal); X50.0XXA Overexertion from strenuous movement or load, initial encounter; Z79.899 Other long term (current) drug therapy; Z91.048 Other nonmedicinal substance allergy status
CPT/HCPCS: 73030; 99283

== ENCOUNTER 2024-08-28 09:55 | Day surgery (SDC) | payer BC, OTHER ==
[2024-08-18 13:50] VITALS: BP 123/75
[~2024-08-28] VITALS: Ht 167.6 cm; Wt 72.7 kg
[~2024-08-28 09:55] MED LIST changes: +CEFAZOLIN SODIUM 2 GM/20 ML SYR IV SCH; +HEParin SOD (PORCINE) 5,000 UNIT/ML SDV SUB-Q SCH; +HYDROXYZINE HCL25 MG PO; +IBLOOD GLUCOSE TEST STRIP 1 EA TEST VI PRN; +LACTATED RINGER'S 1,000 ML IV SCH; +LIDOCAINE HCL 1% 5 ML SDV INJ ONE
[2024-08-28 10:13] VITALS: BP 129/78
[2024-08-28] MEDS ORDERED: HYDROXYZINE PAM25 MG PO (10:20)
[2024-08-28] MEDS ORDERED: BENADRYL25 MG PO (10:21)
[2024-08-28] MEDS ORDERED: propofoL 200 MG/20 ML VIAL ONE (11:27)
[2024-08-28] MEDS ORDERED: fentaNYL citrate 100 MCG/2 ML VIAL ONE (11:27)
[2024-08-28] MEDS ORDERED: MIDAZOLAM HCL 2 MG/2 ML VIAL ONE (11:27)
[2024-08-28] MEDS ORDERED: ACETAMINOPHEN 1,000 MG/100 ML VIAL ONE (11:27)
[2024-08-28] MEDS ORDERED: SUGAMMADEX SODIUM 200 MG/2 ML ML ONE (11:27)
[2024-08-28] MEDS ORDERED: ROCURONIUM BROMIDE 50 MG/5 ML SYR ONE ×2 (11:27→12:45)
[2024-08-28] MEDS ORDERED: KETOROLAC TROMETHAMINE 30 MG/ML VIAL ONE (11:27)
[2024-08-28] MEDS ORDERED: ondansetron HCL 4 MG/2 ML VIAL ONE (11:27)
[2024-08-28] MEDS ORDERED: DEXAMETHASONE SOD PHOS 4 MG/ML VIAL ONE (11:27)
[2024-08-28] MEDS ORDERED: SUCCINYLCHOLINE IN 0.9% NACL 200 MG/10 ML SYRINGE ONE (11:27)
[2024-08-28] MEDS ORDERED: LIDOCAINE HCL 2% 20 MG/ML VIAL INJ ONE (11:28)
[2024-08-28] MEDS ORDERED: iopamidoL 30 ML VIAL ONE (11:33)
[2024-08-28] MEDS ORDERED: SODIUM CHLORIDE 0.9% 60 ML IV ONE (11:33)
[2024-08-28] MEDS ORDERED: fentaNYL citrate 50 MCG/ML SDV IV PRN (12:30)
[2024-08-28] MEDS ORDERED: ondansetron HCL 4 MG/2 ML VIAL IV PRN (12:30)
[2024-08-28] MEDS ORDERED: PROCHLORPERAZINE EDISYLATE 10 MG/2 ML VIAL IV PRN (12:30)
[2024-08-28] MEDS ORDERED: IBLOOD GLUCOSE TEST STRIP 1 EA TEST VI PRN (12:30)
[2024-08-28] MEDS ORDERED: HYDROmorphone HCL 1 MG/ML SYR IV PRN (12:30)
[2024-08-28] MEDS ORDERED: NALOXONE HCL 0.4 MG SYR IV PRN ×2 (12:30→13:15)
[2024-08-28] MEDS ORDERED: droPERidol 5 MG/2 ML VIAL IV PRN (12:30)
[2024-08-28] MEDS ORDERED: ePHEDrine sulfate 50 MG/ML AMP ONE (12:35)
[2024-08-28] MEDS ORDERED: LACTATED RINGER'S 1,000 ML IV ONE (12:53)
[2024-08-28] MEDS ORDERED: IBUPROFEN 600 MG TAB PO PRN (13:15)
[2024-08-28] MEDS ORDERED: LACTATED RINGER'S 1,000 ML IV SCH (13:15)
[2024-08-28] MEDS ORDERED: OXYCODONE/APAP 7.5/325 TAB PO PRN (13:15)
[2024-08-28] MEDS ORDERED: ACETAMINOPHEN 500 MG TAB PO PRN (13:15)
[2024-08-28] MEDS ORDERED: OXYCODON-ACETA1 EAC2 PO (13:19)
[2024-08-28] MEDS ORDERED: IBUPROFEN600 MG PO (13:19)
[2024-08-28] MEDS ORDERED: ACETAMINOPHEN500 MG PO (13:20)
--- NOTE | 2024-08-28 13:58 | NUR ---
08/28/24 1358 Kathy George 1313-PT ARRIVES TO PACU VIA STRETCHER, RESTING SEMI FOWLERS, PT NOT RESPONISVE TO VERBAL OR TACTILE STIMULI, RESTING W/ EYES CLOSED, VSS ON 6L VIA MASK, RR EVEN AND UNLABORED. 1325-PT AWAKENS ON OWN, TITRATED TO RA, VS REMAIN STABLE. PT C/O NAUSEA AND 10/10 PAIN. PT GIVEN IV MEDICATION FOR BOTH SEE EMAR. PT GIVEN PILLOW AND EDUCATED ON SPLINTING ABD WHEN COUGHING. 1330-PT STILL REPORTS SEVERE 10/10 PAIN, ADDITIONAL IV PAIN MEDICATION GIVEN. 1340-PT REPORTS 8/10 PAIN AND CONTINUED NAUSEA, IV MEDICATIONS GIVEN FOR BOTH SEE EMAR. ICE PACK APPLIED TO ABD. 1345-PT RESTING W/ EYES CLOSED BUT AWAKENS ON OWN, VSS ON RA.
[2024-08-28 14:41] VITALS: BP 105/74
--- NOTE | 2024-08-28 14:54 | NUR ---
1435 PT ARRIVED TO DAY SURGERY VIA STREACHER. PT DROWSEY BUT ORIENTED. PT REPORTS TOLERABLE 4/10 PAIN. PT REPORTS SOME NAUSEA AT THIS TIME, COOL WASH CLOTH GIVEN. PT VERY DROWSEY.PT IN ROOM. PT BREATHING EQUAL AND UNLABORED, PT ON 2L VIA NASAL CANULLA. PT AT 98% OXYGEN. 1440 PT LOWERED TO 1L ON NC. PT OXYGEN AT 97% ON 1L. 1445 PT LOWERED TO ROOM AIR. PT OXYGEN SAT AT 96% ON RA. PT BREATHING EQUAL AND UNLABORED. 1455 PT REQUESTS A PRESCRIPTION FOR NAUSEA AT HOME. SPOKE WITH DR BRICE AND DR BRICE WROTE A SCRIPT FOR 8MG ODT ZOFRAN Q6HRS FOR NAUSEA. PRESCRIPTION FOR NAUSEA AND PAIN GIVEN TO PT . PT IS GOING TO TAKE THEM TO [facility] TO BE FILLED. PT HAS CALL LIGHT WITHIN REACH, AND PERSONAL ITEMS AT BEDSIDE. PT HAS BEEN ABLE TO TOLERATE PO PUDDING AND WATER.
--- NOTE | 2024-08-28 15:11 | NUR ---
1507 PAIN MEDICATION GIVEN TO PT PER EMAR. PT AT 4/10 PAIN, TOLERABLE AT THIS POINT BUT DOES NOT WANT PAIN TO GET WORSE.
[2024-08-28 15:34] VITALS: BP 136/77
[2024-08-28] MEDS ORDERED: SEVOFLURANE 250 ML BTL INH ONE (16:15)
--- NOTE | 2024-08-28 16:21 | NUR ---
1535 HOURLY ROUNDING DONE WITH PT. VITALS TAKEN. IV ASSESSED. PT REPORTS 4/10 TOLERABLE PAIN. PT REPORTS NO NAUSEA. 1545 PT UP TO BATHROOM. PT ABLE TO AMBULATE TO BATHROOM AND VOID. PT VOIDS 350 MLS OF CLEAR YELLOW URINE. PT ABLE TO AMBULATE BACK TO BED. PT HAS BEEN ABLE TO TOLERATE PO FLUIDS AND PUDDING. PT GETTING DRESSED WITH THE ASSSITANCE OF HIS . 1555 DISCHARGE INFORMATION GONE OVER WITH PT AND . NO QUESTIONS AT THIS TIME. 1600 IV REMOVED FOR DISCHARGE. 1605 PT ABLE TO AMBULATE TO WHEELCHAIR. PT DISCHARGED FROM DAY SURGERY VIA WHEELCHAIR TO THE FRONT OF THE HOSPITAL TO PT'S 'S CAR.
--- NOTE | 2024-08-29 12:34 | OR ---
[facility] [address] [place], [place] [address] Signed DATE OF OPERATION: 08/28/2024 SURGEON: Shae Brice MD PREOPERATIVE DIAGNOSIS: Acalculous chronic cholecystitis. POSTOPERATIVE DIAGNOSIS: Acalculous chronic cholecystitis. PROCEDURES: 1. Laparoscopic cholecystectomy with intraoperative cholangiogram. 2. Surgeon-directed fluoroscopy and laparoscopic lysis of adhesions. ANESTHESIA: General endotracheal, Vincent Spence JOB COUNSELOR and local 10 mL of 0.25% Marcaine with epinephrine. INDICATION: This 28-year-old black man is a patient of DRU Smith. He is admitted at this time to undergo cholecystectomy preferred by laparoscopic approach for clinical findings of chronic recurrent acalculous cholecystitis. He has had a gallbladder ultrasound which was negative and a CCK-HIDA test which showed a normal ejection fraction of 79% with marked reproduction of his symptoms. He has reliable postprandial right upper abdominal pain, nausea and bloating following intake of food particularly fatty food. His family history is unknown as he is adopted. He is admitted at this time to undergo cholecystectomy preferred by laparoscopic approach. He understands the risk of bleeding, infection, bile duct injury, and most importantly failure to improve his symptoms, understanding this he wished to proceed. FINDINGS: The gallbladder did appear to be chronically inflamed. There were adhesions of omentum to the undersurface of the liver and nearby gallbladder. The liver itself was normal. Intraoperative cholangiogram showed conventional anatomy but with a very narrow cystic duct which was relatively long. The gallbladder once excised showed no mucosal cholesterolosis or stones or neoplasm. DESCRIPTION OF PROCEDURE: The patient was brought to the operating room, given a general endotracheal anesthetic. Preoperative antibiotic Ancef was given. Sequential compression device stockings used Electronically Signed By: SHAE BRICE MD 08/29/24 1234 PATIENT NAME: ANTOINE LEA OPERATIVE REPORT DATE OF : [birth year] REPORT #: [id number] PHYSICIAN: SHAE BRICE MD PCP: MAYDA SINGH PA-C REPORT IS CONFIDENTIAL AND NOT TO BE RELEASED WITHOUT AUTHORIZATION [facility] [address] [place], [place] [address] Signed and heparin subcutaneously administered. The abdomen was prepared with chlorhexidine solution and draped sterilely after clipping. An infraumbilical incision was made and using an open Nella cannula technique pneumoperitoneum was achieved to a level of 14 mmHg of carbon dioxide gas. Intra-abdominal inspection showed no sign of ascites or carcinomatosis. Gallbladder was visualized below the liver edge; liver appeared normal. Three additional trocars were placed in usual configuration in the subxiphoid, right midclavicular, and right anterior axillary line. Gallbladder was elevated cephalad noting a fair number of omental adhesions to the capsule of the liver near the gallbladder. These were taken down more fully so as to avoid capsular liver tear. This allowed for more full elevation of the gallbladder. The gallbladder then was grasped at the infundibulum, retracted laterally and using blunt electrocautery dissection, the triangle of Calot was dissected free ultimately identifying well the dominant cystic artery and the cystic duct itself. The cystic artery was doubly clipped and divided and the clip applied across the gallbladder cystic duct junction. A transverse choledochotomy was made in the cystic duct allowing for egress of clear bile. Using the Fine type cholangiocatheter intraoperative cholangiography was undertaken showing free flow of contrast in the biliary tree with prompt emptying into the duodenum. Anatomy was conventional though the cystic duct was quite long. The cystic duct was triply clipped and then divided. The gallbladder dissected free in a retrograde fashion using electrocautery. A small rent was made in the gallbladder causing some leakage of bile, but no stones. Gallbladder was placed in an endobag and extracted through the infraumbilical port site without problem opened on the back table and found to have chronic inflammatory change to mucosa, but no cholesterolosis and no occult stones. Subhepatic space was irrigated and found to have no bile leak, bleeding or other problems. The trocars removed under direct visualization showing no sign of bleeding. The infraumbilical fascial incision was reapproximated with interrupted 0 Vicryl suture. Skin was closed with interrupted 3-0 Vicryl after application of 10 mL of 0.25% Marcaine with epinephrine locally. Steri-Strips were applied. The patient was extubated in the operating room and planning for transport to recovery room at this time. Blood loss was minimal. Complications none. Shae Brice MD JM/MODL /[id number] Electronically Signed By: SHAE BRICE MD 08/29/24 1234 PATIENT NAME: ANTOINE LEA OPERATIVE REPORT DATE OF : [birth year] REPORT #: [id number] PHYSICIAN: SHAE BRICE MD PCP: MAYDA SINGH PA-C REPORT IS CONFIDENTIAL AND NOT TO BE RELEASED WITHOUT AUTHORIZATION [facility] [address] [place] [address] Signed cc: Mayda Singh PA-C Copies: MAYDA SINGH PA-C ~ Electronically Signed By: SHAE BRICE MD 08/29/24 1234 PATIENT NAME: ANTOINE LEA [place] OPERATIVE REPORT DATE OF : [birth year] REPORT #: [id number] PHYSICIAN: SHAE BRICE MD PCP: MAYDA SINGH PA-C REPORT IS CONFIDENTIAL AND NOT TO BE RELEASED WITHOUT AUTHORIZATION
--- NOTE | 2024-09-01 15:26 | PATH ---
[facility] [address] [place], [place] [address] Signed SPECIMEN(S): A GALLBLADDER AND CONTENTS SPECIMEN SOURCE: A. GALLBLADDER AND CONTENTS CLINICAL HISTORY: Cholecystitis. FINAL PATHOLOGIC DIAGNOSIS: Gallbladder and contents: - Chronic cholecystitis. - Negative for calculi. JVR:clv MICROSCOPIC EXAMINATION: Histologic sections of all submitted blocks are examined by light microscopy. These findings, together with the gross examination, support the pathologic diagnosis. GROSS DESCRIPTION: The specimen, labeled and designated "DemetriceLiu, " and designated on the requisition "gallbladder and contents," is received in formalin and consists of Specimen: Previously opened gallbladder. Dimensions: 7.6 x 3.5 x 0.7 cm. Serosa: [place]-glover and smooth. Cystic Duct: Inked, probed patent. Calculi: Not grossly identified. Mucosa: [place] and velvety with areas of erosion. Wall thickness: 0.2 cm. Lymph node: No pericystic lymph nodes are grossly identified. Additional: None. Amusement Park Entertainer sections are submitted in (A1). FB (under the direct supervision of a pathologist) The Gross Description was prepared using a voice recognition system. The report was reviewed for accuracy; however, sound-alike word errors, addition and/or deletions may occur. If there is any question about this report, please contact Client Services. PERFORMING LABORATORY: Technical component was performed by [facility], [address] [place] [id number] (CLIA# [id number]). Professional interpretation was PATIENT NAME: ANTOINE LEA PATHOLOGY DATE OF : [birth year] REPORT #: [id number] PHYSICIAN: [facility] PATHOLOG[facility] PCP: CONSTANCE ESTEBAN PA-C REPORT IS CONFIDENTIAL AND NOT TO BE RELEASED WITHOUT AUTHORIZATION [address], [place] [address] Signed performed by [facility] [address] [id number] (CLIA#: [id number]). Diagnostician: Lorenzo Martinez MD Pathologist Electronically Signed 09/01/2024 Copies: ~ PATIENT NAME: ANTOINE LEA PATHOLOGY DATE OF : [birth year] REPORT #: [id number] PHYSICIAN: BRYCE ROSA PCP: CONSTANCE ESTEBAN PA-C REPORT IS CONFIDENTIAL AND NOT TO BE RELEASED WITHOUT AUTHORIZATION
== END 2024-08-28 16:05 | disposition home or self-care (01) ==
LOC: DS 09:55
PROVIDERS: ATTEND Surgery
PROC: BF532Z0 Other Imaging of Gallbladder and Bile Ducts using Fluorescing Agent, Intraoperative (ICD-10-PCS; 2024-08-28)
PROC: 0FT44ZZ Resection of Gallbladder, Percutaneous Endoscopic Approach (ICD-10-PCS; principal; 2024-08-28 11:40)
DX: K81.1 Chronic cholecystitis (principal); K52.9 Noninfective gastroenteritis and colitis, unspecified; Z91.048 Other nonmedicinal substance allergy status; Z79.899 Other long term (current) drug therapy; Z87.891 Personal history of nicotine dependence
CPT/HCPCS: 00790; 74300; J0131; J0330; J1100; J1171; J1644; J1790; J1885; J2250; J2405; J2704; J3010; J3490; J7121; Q9967